=== PATIENT | female | born 1970 | race Caucasian/White ===

== ENCOUNTER → 2017-08-30 08:21 | Outpatient (CLI) | payer OTHER, SELFPAY ==
--- NOTE | 2017-08-30 08:24 | MM_ITS ---
MM Dig screening mamm BI w/CAD CAD Screening ORDERING PHYSICIAN : Spring Ortiz PATIENT AGE: 47 years GENDER: Female COMPARISON: Previous mammograms: August 2016, INDICATION: Uses progesterone lotion. No new complaints. Noncontributory family history TECHNIQUE: Standard CC and MLO images were obtained. R2 CAD reviewed. FINDINGS: Moderate density breast bilaterally with no dominant mass nor suspicious calcifications either breast . No architectural distortion. Prior mammogram helpful and supportive stable fibroglandular pattern with no significant new findingsCAD computer review highlights no new areas of concern either Bilateral follow-up in one year adequate RIGHT BREAST:No new areas of concern. Stable LEFT BREAST:No significant new findings. The mild nodularity seen on cc view is stable and dissipates on the MLO view. IMPRESSION: Stable mammogram no significant new findings. Bilateral follow-up one year recommended. BI-RADS Category: 1 Negative RECOMMENDED FOLLOW-UP: 1YR - 1 YEAR FOLLOW-UP (A letter has been sent to the patient regarding results of the study.)
== END ==
PROVIDERS: PCP Nurse Practitioner Family; Visit Provider Nurse Practitioner
DX: Z12.31 Encounter for screening mammogram for malignant neoplasm of breast (principal)
CPT/HCPCS: 77067

== ENCOUNTER → 2017-11-26 10:53 | Outpatient (CLI) | payer OTHER, SELFPAY ==
--- NOTE | 2017-11-26 10:56 | US_ITS ---
US soft tissue head and neck CLINICAL INDICATION: ITS.REASON: SWELLING OF LYMPH NODES ORDERING PHYSICIAN: Spring Ortiz PATIENT AGE: 47 years Comparison: None FINDINGS: Ultrasound is performed of the supraclavicular region bilaterally in the area of palpable concern. There is heterogeneous echogenicity in both of these areas measuring up to 4.6 x 3 cm on the right and 4 x 1 cm on the left . This has the appearance of fatty tissue/lipomas. There is a 6 small node in the left supraclavicular region at 1 cm. Parotid and submandibular glands have an unremarkable appearance with no other significant anomalies evident. IMPRESSION: Heterogeneous areas of increased echogenicity in the supraclavicular regions likely correspond to fatty tissue/lipomas
== END ==
PROVIDERS: PCP Nurse Practitioner Family; Visit Provider Nurse Practitioner
DX: R59.9 Enlarged lymph nodes, unspecified (principal)
CPT/HCPCS: 76536

== ENCOUNTER → 2017-12-03 14:54 | Outpatient (CLI) | payer OTHER, SELFPAY ==
--- NOTE | 2017-12-03 14:57 | CT_ITS ---
CT soft tissue neck wo con INDICATION: ITS.REASON: SWOLLEN LYMPH NODES, DYSPHAGIA ORDERING PHYSICIAN: Spring Ortiz PATIENT AGE: 47 years COMPARISON: None TECHNIQUE: Axial images are obtained without contrast. Sagittal and coronal reformatted images are reviewed as well. All CT scans at the facility use one or more dose reduction, viz: automated exposure control, ma/kV adjustment per patient size (including targeted exams where dose is matched to indication, i.e. head), or iterative reconstruction technique. FINDINGS: Evaluation limited without IV contrast. Artifact is present patient's dental work. The nasopharynx has an unremarkable appearance. No sinus air-fluid level of the visualized sinuses. Parotid glands and submandibular glands are unremarkable. A BB is placed along the in the anterior aspect of the neck centrally slightly toward the left and in the supraclavicular region bilaterally toward the base of the neck. No nodules are evident beneath these BBs. No adenopathy. No evidence of abscess. The lung apices are clear. The thyroid gland has an unremarkable appearance. There are few scattered small cervical lymph nodes in the deep cervical chains and in the submandibular region. There is degenerative disc disease at C5-C6 with posterior endplate osteophytes with a central and right paracentral disc osteophyte complex with borderline narrowing of the canal. IMPRESSION: 1. Essentially negative unenhanced CT scan of the neck. No mass adenopathy or abscess. 2. Degenerative disc disease with central and right paracentral disc osteophyte complex at C5-C6
== END ==
PROVIDERS: PCP Nurse Practitioner; Visit Provider Nurse Practitioner
DX: R13.10 Dysphagia, unspecified (principal); R59.9 Enlarged lymph nodes, unspecified
CPT/HCPCS: 70490

== ENCOUNTER → 2017-12-04 12:20 | Outpatient (CLI) | payer OTHER, SELFPAY ==
--- NOTE | 2017-12-04 12:26 | XR_ITS ---
XR chest 2V HISTORY: ITS.REASON: COUGH ORDERING PHYSICIAN: Azam Poe MD PATIENT AGE: 47 years Technique: PA and lateral chest COMPARISON: No prior chest film FINDINGS: No acute cardiopulmonary findings. No focal pneumonia Small 3.5 mm partially calcified granuloma at the right midlung. Anterior second interspace. On the left near scarring density with posterior small partially calcified granuloma likely yields a minimal density density projected over the left fourth rib, just lateral to the left heart border. A follow-up chest film in 4 months could confirm stability of these most benign-appearing features heart upper normal in size.. pulmonary vascularity normal The lungs are clear without infiltrates, suspicious nodules, or pleural effusions. No acute bony abnormalities. IMPRESSION: . Nothing definitely acute. Minimal Old granulomas disease I believe account for minor densities bilaterally . Follow-up chest film 4 months could further confirm stability, since are no prior studies for comparison.
== END ==
PROVIDERS: PCP Family Medicine; Referring Provider Family Medicine; Visit Provider Family Medicine
DX: R05 Cough (principal)
CPT/HCPCS: 71046

== ENCOUNTER → 2017-12-07 16:02 | Outpatient (CLI) | payer OTHER, SELFPAY ==
--- NOTE | 2017-12-07 16:08 | CT_ITS ---
CT chest w con HISTORY: ITS.REASON: POSTOBSTRUCTIVE PNEUMONIA, NIGHT SWEATS, SHORTNESS OF BREATH ORDERING PHYSICIAN: Azam Poe MD PATIENT AGE: 47 years COMPARISON: None TECHNIQUE: Axial images obtained following the administration of 75 mL of Isovue 370 . Sagittal, and coronal reformatted images are also generated and reviewed. All CT scans at the facility use one or more dose reduction, viz: automated exposure control, ma/kV adjustment per patient size (including targeted exams where dose is matched to indication, i.e. head), or iterative reconstruction technique. FINDINGS: No mediastinal or hilar mass or adenopathy. Normal heart size. Minimal pericardial thickening anteriorly nonspecific. Patchy groundglass density is present in the right upper lobe centrally and laterally and medially along the minor fissure consistent with patchy areas of pneumonitis. A subpleural nodular opacity is present in the right lower lobe posteriorly at 4 mm. There is also some patchy groundglass density in the left upper lobe. Calcified granuloma is present in the left lower lobe. No suspicious pulmonary nodules. No central obstructing lesions. No acute bony anomalies. Upper abdominal images show fatty liver. IMPRESSION: 1. Patchy groundglass density in both upper lobes suggesting mild tendinitis. No central obstructing lesion. 2. Old granulomatous disease 3. 4 mm subpleural nodule right lower lobe posteriorly nonspecific. No follow-up needed for low-risk patients. Follow-up in 12 months for high risk patients suggested
== END ==
PROVIDERS: PCP Family Medicine; Visit Provider Family Medicine
DX: J18.9 Pneumonia, unspecified organism (principal); R61 Generalized hyperhidrosis; R06.02 Shortness of breath
CPT/HCPCS: 71260; Q9967

== ENCOUNTER → 2018-01-19 15:08 | Outpatient (CLI) | payer OTHER, SELFPAY | PROVIDERS: Visit Provider Physician Assistant | DX: R06.00 Dyspnea, unspecified (principal); R60.9 Edema, unspecified | CPT/HCPCS: 93005 ==

== ENCOUNTER → 2018-01-24 10:45 | Outpatient (CLI) | payer OTHER, SELFPAY ==
--- NOTE | 2018-01-24 10:47 | CA_ITS ---
PROCEDURE: 2-D M-mode and color Doppler study INDICATIONS FOR THE TEST: Chest pain COPD Heart MurmurX Tobacco SmokingX Palpitations Fatigue Syncope Edema Hypertension Diabetes Mellitus Rheumatic Fever SOBXDOE Obesity Hyperlipidemia Family History HD Additional History PATIENT INFORMATION HEIGHT: 60 WEIGHT:201 GENDER: Female B/P:140/88 2-D/M-MODE INTERPRETATION: 2-D MEASUREMENTS OBSERVED VALUES IN CMS Right Ventricular Dimension (RVDd) 3.1 Interventricular Septum (Thickness)(IVsd) .6 Left Ventricular Internal Dimensions(LVIDd) 4.9 Left Ventricular Posterior Wall (Thickness)(LVPWd) .9 Aortic Root 2.7 Aortic Cusp Separation 1.8 Left Atrial Dimensions (LAD) 2.6 2D 1. Left atrium is normal size, left ventricle is normal size, there is no concentric left ventricular hypertrophy, visually estimated ejection fraction of 55% with no regional wall motion abnormality. 2. The right atrium and right ventricle are normal size and contractility. 3. The aortic valve is minimally thickened and fibrosed. 4. The mitral and tricuspid valve are grossly normal. 5. The pulmonic valve is poorly visualized. 6. No significant pericardial effusion noted. DOPPLER INTERROGATION: Doppler interrogation of the aortic, mitral and tricuspid valvular presence of mild mitral and tricuspid regurgitation, tricuspid regurgitation jet velocity insufficient for calculation of the right ventricular systolic pressure, diastolic parameters are within normal range. CONCLUSION: 1. Normal left ventricular size, preserved left ventricular systolic function, visually estimated ejection of 55 with no regional wall motion abnormality, diastolic parameters are within normal range. 2. Mild mitral and tricuspid regurgitation. 3. No significant pericardial effusion noted
== END ==
PROVIDERS: PCP Nurse Practitioner; Visit Provider Physician Assistant
DX: R01.1 Cardiac murmur, unspecified (principal); R06.00 Dyspnea, unspecified
CPT/HCPCS: 93306

== ENCOUNTER → 2018-09-05 08:25 | Outpatient (CLI) | payer OTHER, SELFPAY ==
--- NOTE | 2018-09-05 08:28 | MM_ITS ---
MM Dig screening mamm BI w/CAD CAD Screening COMPARISON: Digital mammograms with CAD 08/30/2017 and 08/26/2016 INDICATION: There is no personal or family history of breast cancer TECHNIQUE: Standard CC and MLO images were obtained. R2 CAD reviewed. FINDINGS: The breasts are composed primarily of fat with minimal scattered fibro glandular densities in each breast. There is no suspicious lesion in either breast and there are no suspicious microcalcifications. IMPRESSION: Stable exam with fibrofatty parenchyma BI-RADS Category: 1 Negative RECOMMENDED FOLLOW-UP: 1YR - 1 YEAR FOLLOW-UP (A letter has been sent to the patient regarding results of the study.)
== END ==
PROVIDERS: PCP Family Medicine; Visit Provider Nurse Practitioner
DX: Z12.31 Encounter for screening mammogram for malignant neoplasm of breast (principal)
CPT/HCPCS: 77067

== ENCOUNTER → 2018-12-16 11:24 | Outpatient (CLI) | payer OTHER, SELFPAY ==
--- NOTE | 2018-12-16 11:29 | XR_ITS ---
PROCEDURE: XR HIP RT 2-3V W/PELVIS CLINICAL INDICATION: INJURY OF RT HIP,RT HIP PAIN COMPARISON: [id number] HIP RT 2-3V W/PELVIS IF PERFOR from 08/26/2016 FINDINGS: No fracture or dislocation is evident. No significant degenerative change. No lytic or blastic change. Unremarkable soft tissues. IMPRESSION: No acute findings. Dictated by: Elvis Acevedo MD 12/16/2018 16:06 Signed by: <Electronically signed by Elvis Acevedo MD in [place]> 12/16/2018 16:06
== END ==
PROVIDERS: PCP Nurse Practitioner Family; Visit Provider Nurse Practitioner Family
DX: S79.911A Unspecified injury of right hip, initial encounter (principal); M25.551 Pain in right hip
CPT/HCPCS: 73502

== ENCOUNTER → 2019-02-01 10:57 | Outpatient (CLI) | payer OTHER, SELFPAY | PROVIDERS: PCP Family Medicine; Visit Provider Family Medicine | DX: G47.33 Obstructive sleep apnea (adult) (pediatric) (principal); I10 Essential (primary) hypertension; R40.0 Somnolence; R51 Headache; R06.83 Snoring | CPT/HCPCS: 95806 ==

== ENCOUNTER → 2019-02-07 08:02 | Outpatient (CLI) | payer OTHER, SELFPAY | PROVIDERS: PCP Family Medicine; Visit Provider Family Medicine | DX: I49.9 Cardiac arrhythmia, unspecified (principal) | CPT/HCPCS: 93225; 93226 ==

== ENCOUNTER → 2019-09-12 07:55 | Outpatient (CLI) | payer OTHER, SELFPAY ==
--- NOTE | 2019-09-12 07:59 | MM_ITS ---
PROCEDURE: MM DIG SCREENING MAMM BI W/CAD Digital Breast Tomosynthesis Included CLINICAL INDICATION: SCREENING There is no personal or family history of breast cancer. COMPARISON: [facility] DIG MAMM-SCREEN [place] W/CAD from 08/26/2016 [facility] MM Dig screening mamm BI w/CAD from 08/30/2017 DIG MAMM-SCREEN [place] from 09/05/2018 TECHNIQUE: Standard CC and MLO images and 3D Tomosynthesis was obtained. R2 CAD reviewed. FINDINGS: The breasts are composed primarily of fat with scattered fibroglandular densities in the central portions of both breasts. There is an asymmetric density left breast just deep to and slightly above the nipple at the 12 o'clock position. It is best seen with tomogram images and recommend the patient return for spot compression views in the MLO and CC projection and ultrasound for additional evaluation. IMPRESSION: Fibrofatty parenchyma with possible developing asymmetric density left breast BI-RAD Category: 0 Need Additional Imaging Evaluation FOLLOW-UP: IMM Immediate Follow-up Recommended (A letter has been sent to the patient regarding results of the study.) Dictated by: Dr. Kedar Willis MD 09/12/2019 09:[address] Kedar Willis MD in [place] 09/12/2019 09:45
== END ==
PROVIDERS: PCP Family Medicine; Visit Provider Family Medicine
DX: Z12.31 Encounter for screening mammogram for malignant neoplasm of breast (principal)
CPT/HCPCS: 77063; 77067

== ENCOUNTER → 2019-09-20 12:56 | Outpatient (CLI) | payer OTHER, SELFPAY ==
--- NOTE | 2019-09-20 12:59 | MM_ITS ---
PROCEDURE: MM DIG MAMM DX UNILAT LT CAD Left breast ultrasound complete with axilla CLINICAL INDICATION: ABN MAMM Follow-up abnormal mammogram, breast nodule COMPARISON: [facility] DIG MAMM-SCREEN [place] W/CAD from 08/26/2016 [facility] MM Dig screening mamm BI w/CAD from 08/30/2017 DIG MAMM-SCREEN [place] from 09/05/2018 MM DIG SCREENING MAMM BI W/CAD from 09/12/2019 US BREAST LT COMPLETE from 09/20/2019 TECHNIQUE: Spot views along with left breast ultrasound FINDINGS: Average fibroglandular tissue. The area of asymmetric density is once again noted in the upper aspect of the left breast centrally which appears less well circumscribed on the spot views and the mL view.. This however maintains a nodular configuration on the CC view measuring approximately 12 by 7 mm. This is probably not significantly changed from 09/05/2018 but may be slightly more prominent from 08 30 17. Left breast ultrasound: In the 12 o'clock position there is a 11 by 6 x 4 mm complicated cyst which may actually represent a cluster of small cyst. This has a benign appearance and may correspond to the mammographic abnormality. At 2 o'clock there is a 6 mm hypoechoic nodule possibly due to a small cyst. 7 mm cyst suspected at 4 o'clock. No suspicious nodules are evident. IMPRESSION: Probably benign findings. Suggest 6 month sonographic and mammographic follow-up BI-RAD Category: 3 Probably Benign Finding Short Term Follow-up FOLLOW-UP: 6M 6Month Follow-up (A letter has been sent to the patient regarding results of the study.) Dictated by: Elvis Acevedo MD 09/22/2019 14:08 Electronically signed by Elvis Acevedo MD in [place] 09/22/2019 14:08
== END ==
LOC: RAD 12:56
PROVIDERS: PCP Family Medicine; Visit Provider Family Medicine
DX: R92.8 Other abnormal and inconclusive findings on diagnostic imaging of breast (principal)
CPT/HCPCS: 76641; 77061; 77065; G0279

== ENCOUNTER → 2019-10-13 07:57 | Outpatient (CLI) | payer OTHER, SELFPAY ==
[2019-10-13 11:42] LABS: Coronavirus 19 IgG Antibody Negative (Negative); Coronavirus 19 IgM Antibody Negative (Negative)
== END ==
PROVIDERS: Visit Provider Obstetrics & Gynecology
DX: Z01.818 Encounter for other preprocedural examination (principal)
CPT/HCPCS: 36415; 86328

== ENCOUNTER 2019-10-16 15:22 | Observation (INO) | payer OTHER, SELFPAY ==
--- NOTE | 2019-10-12 11:24 | SUR.PREOP ---
10/12/2019 @ 1100--PHONE CALL MADE TO PATIENT. PATIENT UNDERSTANDS THAT LAB WORK AND COVID TESTING NEEDS TO BE COMPLETED @ 0800 ON 10/13/2019. PATIENT UNDERSTANDS IF LAB WORK AND COVID-19 TESTS ARE NOT COMPLETED BY 12PM ON THAT DATE, THE SURGERY SCHEDULED WILL BE CANCELLED AND RESCHEDULED FOR ANOTHER TIME.
[2019-10-12 13:14] VITALS: BMI 38.0
[2019-10-16] VITALS (26 sets, daily range): BP systolic 88–122; BP diastolic 54–75; PULSE 53–90; RESP 16–18; TEMP 36.2–43; O2SAT 92–100
[2019-10-16 12:24] LABS: POC Glucose,Bedside 110 (70-110)
[2019-10-16 14:19] LABS: Microscopic,Cath URINE MICROSCOPIC (MICROSCOPIC)
[2019-10-16 14:21] LABS: Appearance,Urine/Cath CLEAR (Clear); Bilirubin,Cath Negative (Negative); Blood, Urine/Cath Negative (Negative); Color,Urine/Cath YELLOW (Yellow); Glucose,Urine/Cath (UA) Negative (Negative); Ketones,Urine/Cath 1+ (Negative); Leukocyte Esterase,Cath Negative (Negative); Nitrate,Cath Negative (Negative); Protein,Urine/Cath Negative (Negative); Specific Gravity, Urine/Cath >= 1.030 (1.005-1.030); Urobilinogen,Cath 0.2 EU/dl (0.2)
--- NOTE | 2019-10-16 14:27 | P.OP_ITS ---
Date of procedure: 10/16/19 Pre-op Diagnosis:: Rectocele Post-op Diagnosis:: Rectocele Procedure performed:: Posterior repair Surgeon:: Mariposa Alva MD E BUSINESS PROJECT MANAGER:: Azam Pendleton Anesthesia: GETA Estimated blood loss (mL): 50 Operative findings:: Grade 2 rectocele No uterine or bladder prolapse Operative note:: The patient was taken to the operating room and general anesthesia was administered without difficulty. She was prepped and draped in lithotomy position. Lidocaine 1% with epi (15cc) was injected in the posterior vaginal musoca to aid with dissection. Allis clamps were applied at the margin of the hymen and the upper aspect of the rectocele. A transverse incision was made at the posterior fourchette and metzenbaum scissors were used to dissect the posterior vaginal mucosa off the perirectal fascia. A vertical incision was made with the scissors to the apex of the rectocele and the lateral aspects of the vaginal mucosa were grasped with allis clamps. The perirectal fascia was further dissected bluntly off the vaginal mucosa. The excessive vaginal mucosa was trimmed and the perirectal fascia was reapproximated with interrupted 0- vicryl sutures in the midline. The vaginal mucosa was then reapproximated with 2-0 vicryl interrupted sutures. The perineum was reapproximated in layers. The patient tolerated the procedure well; sponge/lap/needle and instrument counts were correct ?2. She was taken to the recovery room awake in stable condition. Estimated blood loss: 50 cc. Condition: stable Disposition: PACU Specimens:: None Complications:: None
--- NOTE | 2019-10-16 14:32 | HMH.ANESCL ---
[facility] Anesthesia Checklist - Patient Identification Patient Identification: Arm Band, Verbal (Name & ) - Structural Data Admitted From: Home Planned Operative Procedure/s: rectocele Consent for Planned Operative Procedure(s) Verified: Yes Verified Documents: History and Physical - NPO Status Verified Time NPO: 00:00 - Chart Verification Results Verified: CBC, BMP - Additional verifications Patient : No Anesthesia Reactions: Yes (nausea) Hx Blood Transfusions: Yes Blood Transfusion Reaction: No Cephalosporin Allergy: No Previous Colonoscopy: No - Cardiovascular Assessment Heart Sounds: S1 & S2 Pulse Strength: Baseline Pulse Rhythm: Regular Peripheral Edema: No - Airway Assessment C-Spine Mobility Assessed: Yes TMJ Mobility Assessed: Yes Dentition: Good Dentition - Neurological Assessment Level of Consciousness: Awake, Alert, Appropriate Hx Seizures: No Numbness or tingling in extremities: No - Anesthesia Plan Anesthesia Risk discussed: Yes Anesthesia Plan: Verified ASA Class: II Anesthesia Type: General [facility] History I have reviewed the patient's past medical history: Yes Medical History: Reports:: Diabetes Mellitus Type 2 Denies:: Cancer, Diabetes Mellitus Type 1, Internal Pacemaker, MRSA, Seizures *Have you ever received a pneumonia vaccine?: No *Have you received a flu vaccine this season?: Yes Other Medical History: Denies: Blood Transfusion Reaction Anesthesia experience/problems:: ponv Other Surgeries: Yes: (1989, ), Dilation and Curettage, Tubal Ligation. No: Pacemaker Amputation: No Fractures: Yes (right elbow) - *Social History Smoking Status: Current every day smoker # Packs/Day (cigarettes): 1 Alcohol Intake: never Substance Use Type: other *Occupational Status:: employed Housing: house *Travel in the last 8 weeks: None Family Hx:: Diabetes (dad and patient), Hypertension, Asthma
--- NOTE | 2019-10-16 14:33 | HMH.ANESI ---
[facility] Anesthesia Record Part I Intake, IV Amount: 300 Estimated blood loss (mL): 50 Urine output (mL): 50 Blood Products used (#): none Blood Pressure: 103/66 SaO2: 93 Pulse Rate: 90 Respiratory Rate: 18 Temperature: 97.5 F Patient is:: Awake, Stable Stable to PACU at:: 14:20
[2019-10-16 14:42] LABS: POC Glucose,Bedside 134 (70-110)
[2019-10-16 14:42] LABS: RBC,Urine/Cath Occasional # /hpf (0-3); WBC,Urine/Cath Occasional #/hpf (0-3)
--- NOTE | 2019-10-16 15:01 | SUR.PHASEI ---
FSBS-134 in PACU
--- NOTE | 2019-10-16 15:59 | HMH.PHAVTE ---
[facility] Pharmacy VTE Monitoring - Patient Demographics Admission date: 10/16/19 Report Date: 10/16/19 Time: 15:59 Allergies/Adverse Reactions: Patient Allergies naproxen Allergy (Mild, Verified 10/16/19 11:36) Rash venlafaxine [From Effexor] Allergy (Mild, Verified 10/16/19 11:36) nausea and vomiting Height: 1.52 m Weight: 88.451 kg - Prophylaxis VTE Prophylaxis Ordered?: Yes Types of VTE Prophylaxis: IPCS Thigh High Location of Applied Device: Bilateral Lower Extremeties - VTE Diagnosis Confirmed Treatment or plan recommended: Continue Current Treatment
--- NOTE | 2019-10-16 16:52 | HMH.ANESII ---
[facility] Anesthesia Record Part II Discharge Time: 15:32 Destination: Medical Surgical Department PACU nurse assessment reviewed?: Yes Patient Condition:: Good Anesthesia Complications:: None Swallowing reflex intact?: Yes Cyanosis?: No Blood Pressure: 91/57 Pulse Rate: 72 Temperature: 97.2 F Mental Status: Alert & Oriented Pain level:: 1 Nausea and/or vomitting:: None Intake, IV Amount: 10
--- NOTE | 2019-10-16 19:10 | PC.NURSE ---
All charting and pt care performed by PANKAJ Saeed. done under my supervision.
--- NOTE | 2019-10-16 19:13 | PC.NURSE ---
Report given to PANKAJ Rushing
--- NOTE | 2019-10-16 19:15 | PC.NURSE ---
REPORT RECIEVED FROM LOLYRN
--- NOTE | 2019-10-16 19:57 | PC.NURSE ---
NICOTINE PATCH 21MG PLACED ON RIGHT UPPER ARM
--- NOTE | 2019-10-16 21:15 | PC.NURSE ---
Addendum entered by Chlea Lou RN 10/16/19 21:58: INCENTIVE SPIROMETER PROVIDED AND PT WAS ABLE TO ACHIEVE 1OOOML.ENCOURAGED USE EVERY HOUR WHILE AWAKE Original Note: UPON ENTERING ROOM PT WAS DOZING.YL HUNG PT HAD BEEN NAUSEATED AND REPORTED SHE DID THROW UP,SO GOING TO GIVE PT SOME JELLO SO SHE WILL HAVE SOMETHING ON HER STOMACH BEFORE SHE TAKES HER METFORMIN AND SINGULAR.PT REPORTS SHE DOES NEED HER SINGULAR TONIGHT.FSBS WAS 208.PT REPORTS A LITTLE MORE BURNING VAG.ICE PACK PROVIDED FOR VAG.AREA.WILL CONTINUE TO MONITOR
[2019-10-16 21:30] LABS: POC Glucose,Bedside 208 (70-110)
--- NOTE | 2019-10-17 02:20 | PC.NURSE ---
PT WAS MEDICATED WITH MORPHINE 2MG IVP FOR PAIN OF 8 ON SCALE OF 0-10.ROSA CARE AND ABBY-CARE DONE TO SEE IF THIS WOULD HELP THE BURNING.650ML YELLOW URINE EMPTIED FROM ROSA,WILL CONTINUE TO MONITOR
--- NOTE | 2019-10-17 02:57 | PC.NURSE ---
PT RESTING QUITELY WITH EYES CLOSED,RESP.EVEN AND UNLABORED.
[2019-10-17 03:55] VITALS: BP 100/65; PULSE 61; RESP 16; TEMP 36.8; O2SAT 96
--- NOTE | 2019-10-17 03:55 | PC.NURSE ---
ANDREA PROVIDED PRIOR TO TAKING THE OXYCODONE ON EMPTY STOMACH
--- NOTE | 2019-10-17 04:30 | PC.NURSE ---
PT MEDICATED WITH OXYCODONE 10MG PO THIS MORNING FOR A BURNING AND THROBBING PAIN.ROSA CATH REMOVED AND PT REPORTS SOME OF THE PRESSURE IS GONE.VAG PACKING REMAINS IN PLACE,A FAINT PINK TINGE NOTED ON KOTEX PAD WITH CATH AND ABBY CARE.LUNGS CLEAR,RESP.EVEN AND UNLABORED.NORMAL BOWEL SOUNDS X4 QUADS,PT REPORTS PASSING FLATUS.PT AFEBRILE.INSTRUCTED PT TO RING WHEN SHE WANTED TO GET UP TO BATHROOM,PT V/U.
--- NOTE | 2019-10-17 04:45 | PC.NURSE ---
PT REPORTS THE PAIN IS BETTER,A 5-6 ON PAIN SCALE.PT REPORTS STILL HAS THE VAG.BURNING,EXPLAINED THAT THE BURNING WILL PROBABLY REMAIN UNTIL REMOVES THE VAG.PACKING,PT V/U
--- NOTE | 2019-10-17 06:46 | PC.NURSE ---
FSBS RESULTS -101.LAB AT BEDSIDE OBTAINING H AND H
[2019-10-17 06:50] LABS: POC Glucose,Bedside 101 (70-110)
[2019-10-17 06:53] LABS: Hematocrit 33.8 % (37.0-47.0); Hemoglobin 11.3 g/dL (12.2-16.2)
--- NOTE | 2019-10-17 07:06 | PC.NURSE ---
REPORT GIVEN TO AMBREENRN
[2019-10-17 08:10] VITALS: BP 110/70; PULSE 74; RESP 16; TEMP 36.6; O2SAT 98
--- NOTE | 2019-10-17 10:06 | PC.NURSE ---
1000 vaginal packing removed per MD verbal order with small amount of brown vaginal blood noted, pt tolerated removal well. 1005 pt ambulated to BR to void with stand by assistance, tolerated activity well and was able to void without any difficulty. Mesh underwear and peripad provided to pt. Pt ambulating in BR, brushing her teeth and getting dressed for discharge, encouraged to call out for any needs.
--- NOTE | 2019-10-17 10:18 | HMH.DCSUM ---
General - General Admission date:: 10/16/19 Discharge date: 10/17/19 Hospital Course Hospital Course: Postop day #1 Posterior repair Tolerating diet, ambulating and voiding Packing removed with minimal drainage Ready for discharge Rhogam Administration: Not Indicated Objective Vital signs: Temp Pulse Resp BP Pulse Ox 97.8 F 74 16 110/70 98 10/17/19 08:10 10/17/19 08:10 10/17/19 08:10 10/17/19 08:10 10/17/19 08:10 Narrative: CONSTITUTIONAL: no acute distress HEENT: mucous membranes moist PULMONARY: breathing unlabored without audible wheezes CV: no tachycardia or visible JVD; normal LE peripheral pulses ABD: soft, ND; appropriately tender but no rebound/guarding SKIN: no rash EXT: no edema LEs NEURO: alert/oriented, no altered mental status PSYCH: appropriate mood and demeanor without anxiety/depression Results Labs on day of discharge: Labs from last 24 hours 10/17/19 10/17/19 10/16/19 06:45 06:41 21:02 Hgb 11.3 L Hct 33.8 L POC Glucose 101 208 H Urine Color Urine Appearance Urine pH Ur Specific [place] Urine Protein Urine Glucose (UA) Urine Ketones Urine Blood Urine Nitrate Urine Bilirubin Urine Urobilinogen Ur Leukocyte Esterase Urine RBC Urine WBC Ur Squamous Epith Cells 10/16/19 10/16/19 10/16/19 14:34 13:10 11:52 Hgb Hct POC Glucose 134 H 110 Urine Color Yellow Urine Appearance Clear Urine pH 6.0 Ur Specific [place] >= 1.030 Urine Protein Negative Urine Glucose (UA) Negative Urine Ketones 1+ Urine Blood Negative Urine Nitrate Negative Urine Bilirubin Negative Urine Urobilinogen 0.2 Ur Leukocyte Esterase Negative Urine RBC Occasional Urine WBC Occasional Ur Squamous Epith Cells 3-5 DS: Diagnosis - Discharge Diagnosis (1) Rectocele Status: Acute Discharge Plan - Patient Discharge Instructions ACTIVITY: Continue current activity DIET: regular diet Additional Instructions: No strenuous activity, no driving while taking prescription narcotics, nothing in the vagina until cleared by your doctor. Patient Instructions: DI for Cystocele and Rectocele Repair, Preventing the Spread of Coronavirus Discharge Instructions - Follow up Plan Follow up with: Mariposa Alva MD [Staff Physician] - 11/07/19 9:15 am Disposition: Home, Self-Group Home Medications: Home Medications Medication Instructions Recorded Confirmed Type celecoxib 200 mg capsule 200 mg PO DAILY 09/28/19 10/12/19 History gabapentin 100 mg capsule 100 mg PO TID 09/28/19 10/17/19 History metformin 500 mg tablet 500 mg PO BID 09/28/19 10/12/19 History montelukast 10 mg tablet 10 mg PO DAILY 09/28/19 10/12/19 History Telmisartan 40 mg PO DAILY 10/16/19 10/16/19 History Oxycodone HCl [OxyIR 5mg tablet] 5 mg PO Q4HP PRN #30 tablet 10/17/19 Rx Prescriptions/Medication Reconciliation: New Acetaminophen [Acetaminophen 325mg tab] 650 mg PO Q4HP PRN tablet PRN Reason: Mild Pain Oxycodone HCl [OxyIR 5mg tablet] 5 mg PO Q4HP PRN #30 tablet PRN Reason: Moderate To Severe Pain Sennosides/Docusate Sodium [Senokot-S Tablet] 1 tab PO BIDP PRN tablet PRN Reason: Constipation Continued metformin 500 mg tablet 500 mg PO BID gabapentin 100 mg capsule 100 mg PO TID montelukast 10 mg tablet 10 mg PO DAILY celecoxib 200 mg capsule 200 mg PO DAILY Telmisartan 40 mg PO DAILY - Problem Reconciliation Problems Reviewed?: Yes
--- NOTE | 2019-10-17 10:42 | PC.NURSE ---
1040- Discharge education provided to pt, questions encouraged and answered. Pt aware of doctors appointment on 11/07/2019 at 0915. At this time, waiting for clinic pharmacy to bring prescription oxycodone to pt and also waiting for pts ride to get here.
== END 2019-10-17 11:10 | disposition home or self-care (01) ==
LOC: OB 10-17 07:28
PROVIDERS: Admitting Provider Obstetrics & Gynecology; PCP Family Medicine; Visit Provider Obstetrics & Gynecology
PROC: 0JQC0ZZ Repair Pelvic Region Subcutaneous Tissue and Fascia, Open Approach (ICD-10-PCS; CPT 45560; principal; 2019-10-16 10:15)
DX: N81.6 Rectocele (principal); E11.9 Type 2 diabetes mellitus without complications; Z79.84 Long term (current) use of oral hypoglycemic drugs; Z72.0 Tobacco use
CPT/HCPCS: 57250; 36415; 81001; 82962; 85014; 85018; 94761; 96374; G0378; J2405

== ENCOUNTER → 2020-02-07 15:07 | Outpatient (CLI) | payer OTHER, SELFPAY | PROVIDERS: PCP Family Medicine; Visit Provider Family Medicine | DX: Z03.818 Encounter for observation for suspected exposure to other biological agents ruled out (principal) | CPT/HCPCS: U0003 ==

== ENCOUNTER → 2020-03-06 14:45 | Outpatient (CLI) | payer OTHER, SELFPAY ==
--- NOTE | 2020-03-06 14:47 | MM_ITS ---
PROCEDURE: MM DIG MAMM DX UNILAT LT CAD Digital Breast Tomosynthesis Included CLINICAL INDICATION: ABN MAMM Six-month follow-up abnormal mammogram COMPARISON: MG DIG MAMM-SCREEN [place] from 09/05/2018 MG MM DIG SCREENING MAMM BI W/CAD from 09/12/2019 MG MM DIG MAMM DX UNILAT LT CAD from 09/20/2019 US US BREAST LT COMPLETE from 09/20/2019 US US BREAST LT COMPLETE from 03/06/2020 TECHNIQUE: Standard CC and MLO images and 3D Tomosynthesis was obtained. R2 CAD reviewed. FINDINGS: There is average fibroglandular tissue. Faint nodularity once again noted in the superior aspect of breast which appears to compress out view.. The area of nodularity appears somewhat less apparent CC view but is still present. Rolled views demonstrate some central nodularity as well. Left breast ultrasound: 8 mm complicated cyst present at 12 o'clock which may account mammographic abnormality. This previously measured 11 mm. There is a small complicated cyst at 2 o'clock at 6 mm unchanged. No malignant appearing mass apparent. IMPRESSION: Probably benign findings. Recommend continued six-month follow-up bilaterally to confirm 1 year stability. BI-RAD Category: 3 Probably Benign Finding Short Term Follow-up FOLLOW-UP: 6M 6Month Follow-up (A letter has been sent to the patient regarding results of the study.) Dictated by: Elvis Acevedo MD 03/08/2020 12:03 Elvis Acevedo MD in [place] 03/08/2020 12:03
== END ==
PROVIDERS: PCP Family Medicine; Visit Provider Family Medicine
DX: R92.8 Other abnormal and inconclusive findings on diagnostic imaging of breast (principal); Z09 Encounter for follow-up examination after completed treatment for conditions other than malignant neoplasm
CPT/HCPCS: 76641; 77061; 77065; G0279

== ENCOUNTER → 2020-03-06 15:27 | Outpatient (CLI) | payer OTHER, SELFPAY ==
[2020-03-08 10:54] LABS: Covid-19 Nasal PCR Sendout Lex Not Detected
== END ==
PROVIDERS: PCP Family Medicine; Visit Provider Family Medicine
DX: Z03.818 Encounter for observation for suspected exposure to other biological agents ruled out (principal)
CPT/HCPCS: U0004

== ENCOUNTER → 2020-05-06 09:09 | Outpatient (CLI) | payer OTHER, SELFPAY | PROVIDERS: PCP Family Medicine; Visit Provider Family Medicine | DX: Z20.822 Contact with and (suspected) exposure to COVID-19 (principal) | CPT/HCPCS: U0003 ==

== ENCOUNTER 2020-08-01 10:20 | Observation (INO) | payer OTHER, SELFPAY ==
[2020-08-01] VITALS (11 sets, daily range): BP systolic 95–170; BP diastolic 55–100; PULSE 54–87; RESP 16–22; TEMP 36.4–36.8; O2SAT 83–100; BMI 35.2; BMI 35.6
--- NOTE | 2020-08-01 10:57 | CT_ITS ---
PROCEDURE: CT ABDOMEN PELVIS WO CON CLINICAL INDICATION: kidney stone protocol Right lower quadrant pain COMPARISON: No exams were available for comparison TECHNIQUE: Axial images obtained with sagittal and coronal reformats. All CT scans at the facility use one or more dose reduction, viz: automated exposure control, ma/kV adjustment per patient size (including targeted exams where dose is matched to indication, i.e. head), or iterative reconstruction technique. FINDINGS: LOWER THORAX: Small hiatal hernia ABDOMEN & PELVIS: The liver, spleen, adrenal glands, and pancreas have an unremarkable unenhanced appearance. There is a 2 mm stone at the right ureterovesical junction with minimal dilatation of the right renal pelvis and calyces and right ureter with mild stranding of the perinephric and periureteral fat. No intestinal obstruction or free air. No evidence of appendicitis or diverticulitis. No pelvic mass or abnormal fluid collection. No acute bony findings. There is a tiny umbilical hernia containing fat. IMPRESSION: 2mm right ureterovesical junction stone with mild right-sided hydronephrosis and hydroureter. There is stranding of the proximal periureteral fat and [place] nephric fat which may be related to so shaded inflammatory or infectious changes. Dictated by: Elvis Acevedo MD 08/01/2020 11:58 Elvis Acevedo MD in [place] 08/01/2020 11:58
[2020-08-01 11:01] LABS: Chloride 106 mmol/L (98-107)
[2020-08-01 11:02] LABS: Basophils # 0.1 K/mm3 (0-0.2); Basophils % 0.8 % (0.1-2.0); Eosinophils # 0.1 K/mm3 (0.0-0.4); Eosinophils % 1.2 % (0.1-12.0); Hematocrit 40.5 % (37.0-47.0); Hemoglobin 13.2 g/dL (12.2-16.2); Lymphocytes # 4.5 K/mm3 (0.7-4.5); Lymphocytes % 43.7 % (10-50); Mean Corpuscular HGB Conc 32.6 g/dL (31.8-35.4); Mean Corpuscular Hemoglobin 28.9 pg (27.0-31.2); Mean Corpuscular Volume 88.5 fl (81-99); Mean Platelet Volume 10.3 fl (7.4-10.4); Monocytes # 0.5 K/mm3 (0.1-1.0); Monocytes % 4.9 % (1.7-9.3); Neutrophils # 5.1 K/mm3 (1.8-7.8); Neutrophils % 49.5 % (37.0-80.0); Platelet Count 189 K/mm3 (142-424); Potassium 4.1 mmoL/L (3.5-5.1); Red Blood Count 4.57 M/mm3 (4.20-5.40); Red Cell Distribution Width 13.6 % (11.5-17.5); Sodium 137 mmol/L (136-145); White Blood Count 10.3 K/mm3 (4.8-10.8)
[2020-08-01 11:04] LABS: Alanine Aminotransferase 24 U/L (12-78); Albumin Level 4.5 g/dl (3.5-5.0); Albumin/Globulin Ratio 1.6 (1.1-1.8); Alkaline Phosphatase 71 U/L (38-126); Anion Gap 13.1 mEq/L (5-15); Aspartate Amino Transferase 27 U/L (14-36); Bilirubin,Total 0.6 mg/dl (0.2-1.3); Blood Urea Nitrogen 13 mg/dl (7-17); Calcium 9.7 mg/dl (8.4-10.2); Carbon Dioxide 22 mmol/L (22.0-30.0); Creatinine Clearance Estimated 106 mL/min (50-200); Estimated Glomerular Filt Rate 75 ml/min (>60); GFR (African American) 91 ML/MIN (>60); Globulin 2.8 g/dL (1.3-3.2); Glucose 168 mg/dl (74-100); Total Protein,Serum 7.3 g/dl (6.3-8.2)
--- NOTE | 2020-08-01 11:25 | HMH.EDABDPAI ---
ED Disposition Clinical Impression: Calculus of kidney Disposition: Admitted as Observation Condition on Discharge: Good Instructions: DI for Acute Abdominal Pain Referrals: Azam Poe MD [Primary Care Provider] - - Critical Care Critical Care Time: No Attestation: On 08/01/20, the high probability of a clinically significant, sudden or life threatening deterioration of the following system(s) required my full and direct attention, intervention and personal management. The time I documented below is in addition to time spent performing reported procedures but includes the following listed in this critical care notation. Medical Decision Making - Medical Records Medical records reviewed: Yes: I reviewed the patient's medical records. - [place]apito Inquiry Pt receiving controlled substance: No Vital Signs: 08/01/20 10:30 08/01/20 11:57 08/01/20 12:00 Temperature 98.3 F Temperature Source Oral Pulse Rate 70 70 Pulse Rate [Right] 84 Respiratory Rate 22 20 Blood Pressure 160/93 H 170/95 H Blood Pressure [Right Arm] 166/100 H Blood Pressure Mean Blood Pressure Mean [Right Arm] 122 Blood Pressure Position 02 Sat by Pulse Oximetry 98 100 100 Oxygen Delivery Method 08/01/20 13:01 08/01/20 13:33 Temperature Temperature Source Pulse Rate 70 87 Pulse Rate [Right] Respiratory Rate Blood Pressure 167/87 H 141/75 H Blood Pressure [Right Arm] Blood Pressure Mean 113 Blood Pressure Mean [Right Arm] Blood Pressure Position Sitting 02 Sat by Pulse Oximetry 100 98 Oxygen Delivery Method Room Air Room Air - Lab Data Lab Results 08/01/20 10:45: WBC 10.3, RBC 4.57, Hgb 13.2, Hct 40.5, MCV 88.5, MCH 28.9, MCHC 32.6, RDW 13.6, Plt Count 189, MPV 10.3, Neut % (Auto) 49.5, Lymph % (Auto) 43.7, [place] % (Auto) 4.9, Eos % (Auto) 1.2, Baso % (Auto) 0.8, Neut # (Auto) 5.1, Lymph # (Auto) 4.5, [place] # (Auto) 0.5, Eos # (Auto) 0.1, Baso # (Auto) 0.1 08/01/20 10:45: Sodium 137, Potassium 4.1, Chloride 106, Carbon Dioxide 22, Anion Gap 13.1, BUN 13, Creatinine 0.80, Estimated Creat Clear 106, Estimated GFR 75, Est GFR ( Amer) 91, Glucose 168 H, Calcium 9.7, Total Bilirubin 0.6, AST 27, ALT 24, Alkaline Phosphatase 71, Total Protein 7.3, Albumin 4.5, Globulin 2.8, Albumin/Globulin Ratio 1.6 Result diagrams: 08/01/20 10:45 08/01/20 10:45 Orders (Tests/Meds): ED MEDICATIONS Discontinued Medications Generic Name Dose Route Start Last Admin Trade Name Freq PRN Reason Stop Dose Admin Hydromorphone HCl 1 mg 08/01/20 12:07 08/01/20 12:11 Hydromorphone 2mg/Ml Syringe IV 08/01/20 12:08 1 mg ONCE ONE Administration Hydromorphone HCl 1 mg 08/01/20 13:32 08/01/20 13:34 Hydromorphone 2mg/Ml Syringe IV 08/01/20 13:33 1 mg ONCE ONE Administration Sodium Chloride 1,000 mls @ 999 mls/hr 08/01/20 11:30 08/01/20 11:51 Sod Chlor 0.9% 1000ml Bag IV 08/01/20 12:30 999 mls/hr .Q1H1M BUD Administration Ketorolac Tromethamine 30 mg 08/01/20 11:48 08/01/20 11:51 Ketorolac 30mg/Ml Vial IV 08/01/20 11:49 30 mg ONCE ONE Administration Morphine Sulfate 4 mg 08/01/20 10:49 08/01/20 10:54 Morphine 4mg/Ml Syringe IV 08/01/20 10:50 4 mg ONCE ONE Administration Morphine Sulfate 4 mg 08/01/20 11:58 08/01/20 12:01 Morphine 4mg/Ml Syringe IV 08/01/20 11:59 4 mg ONCE ONE Administration Ondansetron HCl 4 mg 08/01/20 10:49 08/01/20 10:52 Ondansetron 4mg/2ml Vial IV 08/01/20 10:50 4 mg ONCE ONE Administration Ondansetron HCl 4 mg 08/01/20 13:32 08/01/20 13:34 Ondansetron 4mg/2ml Vial IV 08/01/20 13:33 4 mg ONCE ONE Administration ORDERS Category Date Time Status Basic Metabolic Panel AMLAB Lab 08/02/20 06:00 Ordered Comprehensive Metabolic Panel [facility] Lab 08/02/20 06:00 Ordered Lipid Panel [facility] Lab 08/02/20 06:00 Ordered Magnesium [facility] Lab 08/02/20 06:00 Ordered Phosphorous AMLAB Lab 08/02/20 06:00
--- NOTE | 2020-08-01 13:39 | PC.NURSE ---
paged for milly.
--- NOTE | 2020-08-01 13:43 | PC.NURSE ---
Dr valenzulea speaking with Dr Poe
--- NOTE | 2020-08-01 14:46 | PC.NURSE ---
REPORT CALLED TO FLOOR
--- NOTE | 2020-08-01 15:16 | PC.NURSE ---
Pt arrived to the floor at this time.
--- NOTE | 2020-08-01 15:31 | HMH.PHAVTE ---
[facility] Pharmacy VTE Monitoring - Patient Demographics Admission date: 08/01/20 Report Date: 08/01/20 Time: 15:31 Allergies/Adverse Reactions: Patient Allergies naproxen Allergy (Mild, Verified 11/28/19 09:31) Rash venlafaxine [From Effexor] Allergy (Mild, Verified 11/28/19 09:31) nausea and vomiting Height: 1.52 m Weight: 81.647 kg Patient Problems: Current Active Problems Calculus of kidney (Acute) - VTE Risk Labs: VTE Related Lab Results Hgb 13.2 g/dL (12.2-16.2) 08/01/20 10:45 Hct 40.5 % (37.0-47.0) 08/01/20 10:45 Plt Count 189 K/mm3 (142-424) 08/01/20 10:45 BUN 13 mg/dl (7-17) 08/01/20 10:45 Creatinine 0.80 mg/dl (0.52-1.04) 08/01/20 10:45 Estimated Creat Clear 106 mL/min (50-200) 08/01/20 10:45 - Prophylaxis VTE Prophylaxis Ordered?: Yes Types of VTE Prophylaxis: TEDS Knee High Location of Applied Device: Bilateral Lower Extremeties
--- NOTE | 2020-08-01 17:54 | PC.NURSE ---
REPORT RECEIVED FROM Gregory SIMS RN
--- NOTE | 2020-08-01 18:06 | PC.NURSE ---
REPORT GIVEN TO SIVA LIRA. PT MOVED TO ROOM 280
--- NOTE | 2020-08-01 18:10 | PC.NURSE ---
pT ARRIVED to unit at this time. a/ox4. poc explained and pt agreeable. rates pain a 4/10- reports just dull pain and patient can tolerate this. pt is shaky from pain medication given. on 1 liter of o2 r/t pain medicine. denies sob. lungs cta and bowel active x4. iv infusing to left ac. no edema noted. pulses 2+. no needs voiced. instructed patient to call out if she needed to use restroom
--- NOTE | 2020-08-01 18:48 | PC.NURSE ---
pt still eating dinner, refused yonatan hose at this time reports she may wear later
--- NOTE | 2020-08-01 19:06 | PC.NURSE ---
report given to bud diaz rn
[2020-08-02 02:07] LABS: Microscopic, Urine URINE MICROSCOPIC (MICROSCOPIC)
[2020-08-02 02:09] LABS: Appearance,Urine CLEAR (Clear); Bilirubin,Urine Negative (Negative); Blood, Urine Negative (Negative); Color,Urine YELLOW (Yellow); Glucose,Urine (UA) Negative (Negative); Ketones,Urine Negative (Negative); Leukocyte Esterase,Urine Negative (Negative); Nitrate,Urine Negative (Negative); Protein,Urine Negative (Negative); Urobilinogen,Urine 0.2 EU/dl (0.2)
[2020-08-02 02:16] LABS: Bacteria,Urine 1+ /lpf; Mucus,Urine 1+ /lpf
[2020-08-02 04:00] VITALS: BP 97/58; PULSE 77; RESP 18; TEMP 37.2; O2SAT 97; BMI 36.5
--- NOTE | 2020-08-02 04:26 | PC.NURSE ---
PT HAS SLEPT THROUGHTOUT THE NIGHT.LUNGS CLEAR,RESP.EVEN AND UNLABORED.[employer] PRINCIPAL TO TOUCH,PT DENIES ANY N/V,BOWEL SOUNDS ACTIVE.PT HAS VOIDED ONCE TONIGHT 500ML CONCENTRATED URINE.URINE STRAINED WITHOUT STONES OR SEDIMENT.UA HAD 1+ BACTERIA AND MUCUS,NO LEUKS.SAT LEVEL 97% ON RA THIS MORNING.AFEBRILE PT DENIES ANY NEED FOR PAIN MEDICINE,WILL CONTINUE TO MONITOR
--- NOTE | 2020-08-02 07:17 | HMH.PHAINT ---
MEDICATION RECONCILIATION COMPLETED ON PATIENT USING EXTERNAL FILL HISTORY FROM PHARMACY. -TERESA WHITMORE, TAMMIED
--- NOTE | 2020-08-02 07:42 | HMH.HPDC ---
General - General Admission date:: 08/01/20 Discharge date: 08/02/20 *Admission Date: 08/01/20 *Chief complaint: Right lower quadrant pain *History of present illness: 50-year-old female with history of diabetes and hypertension presented to the emergency department yesterday morning with complaints of right lower quadrant pain. Work-up revealed a 2 mm kidney stone at the right UVJ. On presentation patient had intractable pain and vomiting. Vomiting was able to be controlled with antiemetics but pain persisted and patient required several doses of intravenous pain medication. Decision was made to admit the patient for pain control. [facility] History I have reviewed the patient's past medical history: Yes Medical History: Denies:: Cancer, Diabetes Mellitus Type 1, Diabetes Mellitus Type 2, Internal Pacemaker, MRSA, Seizures *Have you ever received a pneumonia vaccine?: No *Have you received a flu vaccine this season?: Yes Other Medical History: Denies: Blood Transfusion Reaction Other Surgeries: Yes: (1989, ), Dilation and Curettage, Tubal Ligation. No: Pacemaker Amputation: No Fractures: Yes (right elbow) - *Social History Smoking Status: Current every day smoker # Packs/Day (cigarettes): 1 Alcohol Intake: never Substance Use Type: other *Occupational Status:: employed Housing: house Household Members: other *Travel in the last 8 weeks: None Family Hx:: No significant family history Review of Systems - Constitutional Denies anorexia - Eyes Denies blind spots - ENT Denies abnormal hearing - *Cardiovascular Denies chest pain - *Respiratory Denies change in phlegm color - *Gastrointestinal Reports abdominal pain - *Genitourinary Denies abnormal periods - *Musculoskeletal Denies abnormal walking - Integumentary/Breasts Denies bleeding lesions - *Neurologic Denies dizziness, Denies headache(s) Exam Vital signs and Labs for Last 24 Hours: Temp Pulse Resp BP Pulse Ox 98.9 F 77 18 97/58 L 97 08/02/20 04:00 08/02/20 04:00 08/02/20 04:00 08/02/20 04:00 08/02/20 04:00 Laboratory Results - last 24 hr 08/01/20 10:45: WBC 10.3, RBC 4.57, Hgb 13.2, Hct 40.5, MCV 88.5, MCH 28.9, MCHC 32.6, RDW 13.6, Plt Count 189, MPV 10.3, Neut % (Auto) 49.5, Lymph % (Auto) 43.7, [place] % (Auto) 4.9, Eos % (Auto) 1.2, Baso % (Auto) 0.8, Neut # (Auto) 5.1, Lymph # (Auto) 4.5, [place] # (Auto) 0.5, Eos # (Auto) 0.1, Baso # (Auto) 0.1 08/01/20 10:45: Sodium 137, Potassium 4.1, Chloride 106, Carbon Dioxide 22, Anion Gap 13.1, BUN 13, Creatinine 0.80, Estimated Creat Clear 106, Estimated GFR 75, Est GFR ( Amer) 91, Glucose 168 H, Calcium 9.7, Total Bilirubin 0.6, AST 27, ALT 24, Alkaline Phosphatase 71, Total Protein 7.3, Albumin 4.5, Globulin 2.8, Albumin/Globulin Ratio 1.6 08/02/20 02:00: Urine Color Yellow, Urine Appearance Clear, Urine pH 6.0, Ur Specific [place] 1.020, Urine Protein Negative, Urine Glucose (UA) Negative, Urine Ketones Negative, Urine Blood Negative, Urine Nitrate Negative, Urine Bilirubin Negative, Urine Urobilinogen 0.2, Ur Leukocyte Esterase Negative, Urine WBC 3-5, Ur Squamous Epith Cells 3-5, Urine Bacteria 1+, Urine Mucus 1+ I & O for Last 24 hours: Intake & Output 07/30/20 07/31/20 08/01/20 08/02/20 11:59 11:59 11:59 11:59 Intake Total 1344 / 1344 Output Total 500 / 500 Balance 844 / 844 Weight 180 lb 186 lb 3 oz Microbiology Reports for the Last 24 Hours: Microbiology 08/01/20 13:48 Nasopharyngeal Coronavirus COVID-19 PCR - Final - *Routine HEENT Exam Head: Present: normocephalic Eye: Present: EOMI, PERRL ENT: Present: mucous membranes moist - *Routine Neck Exam Present: supple. Absent: lymphadenopathy - *Routine Respiratory Exam Present: CTA bilaterally - *Routine Cardiovascular Exam Present: RRR - *Routine Abdominal Exam Present: soft, normoactive bowel sounds, tenderness (Deep palpation of right lower quadrant) - *Routin
[2020-08-02 08:00] VITALS: BP 92/49; PULSE 88; RESP 18; TEMP 37.8; O2SAT 99
[2020-08-02 09:00] VITALS: O2SAT 95
--- NOTE | 2020-08-02 10:00 | PC.NURSE ---
IV fluids increased to 250ml/hr
[2020-08-02 10:06] VITALS: BP 87/50; PULSE 74; RESP 18; TEMP 37.4; O2SAT 95
[2020-08-02 12:43] VITALS: BP 81/44; PULSE 87; RESP 18; TEMP 36.9
--- NOTE | 2020-08-02 15:02 | PC.NURSE ---
REPORT TO PANKAJ GUILLEN.
[2020-08-02 16:19] VITALS: BP 129/74; PULSE 69; RESP 18; TEMP 37.3; O2SAT 99
== END 2020-08-02 16:45 | disposition home or self-care (01) ==
LOC: ER 13:46 → 2ND 15:35 → OB 16:21
PROVIDERS: Admitting Provider Family Medicine; Emergency Provider Emergency Medicine; PCP Family Medicine; Visit Provider Family Medicine
DX: N20.0 Calculus of kidney (principal); Z72.0 Tobacco use
CPT/HCPCS: 74176; 80053; 81001; 85025; 96365; 96375; 96376; 99284; G0378; J2405; U0003

== ENCOUNTER → 2020-09-05 13:00 | Outpatient (CLI) | payer OTHER, SELFPAY ==
--- NOTE | 2020-09-05 13:03 | US_ITS ---
PROCEDURE: MM DIG MAMM BI DX W/CAD Digital Breast Tomosynthesis Included CLINICAL INDICATION: 6 MONTH F/U ON LT SCREENING ON RT COMPARISON: MG DMSB DIG MAMM-SCREEN [place] W/CAD from 08/26/2016 MG SCBI MM Dig screening mamm BI w/CAD from 08/30/2017 MG DIG MAMM-SCREEN [place] from 09/05/2018 MG MM DIG SCREENING MAMM BI W/CAD from 09/12/2019 MG MM DIG MAMM DX UNILAT LT CAD from 09/20/2019 MG MM DIG MAMM DX UNILAT LT CAD from 03/06/2020 US US BREAST LT COMPLETE from 03/06/2020 US US BREAST LT COMPLETE from 09/05/2020 TECHNIQUE: Standard CC and MLO images and 3D Tomosynthesis was obtained. R2 CAD reviewed. FINDINGS: Average fibroglandular tissue. No malignant appearing mass or malignant-appearing microcalcification. Minimal nodularity in the central left breast appears to compress out on the MLO view. On the CC view there is some persistent nodularity in the central left breast middle 1/3 as seen on the tomographic images measuring 7 x 7 mm. This appears slightly larger The right breast has an unremarkable appearance. Left breast ultrasound: At 12 o'clock there is a septated complicated cyst measuring 8 mm near the nipple and may account for the mammographic abnormality. There is an additional hypoechoic nodule at 12 o'clock near the nipple at 5 mm. At 2 o'clock there is a 5 mm hypoechoic nodule near the nipple IMPRESSION: Discordant nodule in the central aspect of the left breast. The nodule appears slightly larger however the sonographic appearance is similar. Suggest ultrasound-guided fine needle aspiration with mammogram to follow to confirm that this nodule actually represents the sonographic nodule. BI-RAD Category: 3 Probably Benign Finding Short Term Follow-Up FOLLOW-UP: Suggest ultrasound-guided fine needle aspiration of the discordant nodule of the left breast (A letter has been sent to the patient regarding results of the study.) Dictated by: Elvis Acevedo MD 09/06/2020 10:53 Elvis Acevedo MD in [place] 09/06/2020 10:53
== END ==
LOC: RAD 13:00
PROVIDERS: PCP Family Medicine; Visit Provider Family Medicine
DX: R92.8 Other abnormal and inconclusive findings on diagnostic imaging of breast (principal); Z09 Encounter for follow-up examination after completed treatment for conditions other than malignant neoplasm
CPT/HCPCS: 76641; 77062; 77066; G0279

== ENCOUNTER → 2020-09-19 09:41 | Outpatient (CLI) | payer OTHER, SELFPAY ==
--- NOTE | 2020-09-19 | MM_ITS ---
PROCEDURE: US FNA BREAST CLINICAL INDICATION: LT BREAST NODULE COMPARISON: MG DIG MAMM-SCREEN MADISON from 09/05/2018 US US BREAST LT COMPLETE from 09/05/2020 MG MM DIG MAMM BI DX W/CAD from 09/05/2020 MG MM DIG MAMM DX UNILAT LT CAD from 09/19/2020 FINDINGS: Technique: Following obtaining informed consent and time-out procedure under aseptic conditions and local anesthesia with 1 percent buffered lidocaine with sonographic guidance, 21 gauge needle was inserted into the complex cystic nodule at 12 o'clock. Less than 1 mL aspirate was obtained. The nodule was completely aspirated. The patient tolerated the procedure well without evidence of immediate complication and left radiology suite in stable condition. Cytology: Negative for malignant cells. Post biopsy mammogram: The nodular density in the central retroareolar region is once again noted but does appears somewhat less apparent compared to the previous exam at 6.8 x 5.8 mm compared to the pre aspiration mammogram of 7.6 x 7.4 mm. This nodule is better. Demonstrated on the tomographic images. The nodule is not well delineated on the mL 0 view. Spot compression views were also obtained. IMPRESSION: Status post uneventful FNA of retroareolar nodule which shows benign findings. Mammographic nodule is somewhat less apparent. Continued six-month post biopsy mammogram and ultrasound follow-up suggested per routine protocol. Dictated by: Elvis Acevedo MD 09/27/2020 13:01 Elvis Acevedo MD in [place] 09/27/2020 13:01
== END ==
LOC: RAD 09:42
PROVIDERS: PCP Family Medicine; Visit Provider Family Medicine
DX: N63.20 Unspecified lump in the left breast, unspecified quadrant (principal)
CPT/HCPCS: 10005; 77061; 77065; G0279

== ENCOUNTER → 2020-10-14 16:55 | Outpatient (CLI) | payer OTHER, SELFPAY ==
--- NOTE | 2020-10-14 17:03 | XR_ITS ---
PROCEDURE: XR HAND RT MIN 3V CLINICAL INDICATION: ARTHRITIS OF CMC JOINT OF RIGHT THUMB COMPARISON: No exams were available for comparison FINDINGS: No fracture or dislocation. No lytic or blastic change. There is normal mineralization. Mild osteoarthritic changes noted involving the 1st carpal metacarpal junction Other findings:None. IMPRESSION: Mild osteoarthritis 1st metacarpal-carpal joint Dictated by: Elvis Acevedo MD 10/14/2020 17:40 Elvis Acevedo MD in [place] 10/14/2020 17:40
--- NOTE | 2020-10-14 17:04 | XR_ITS ---
PROCEDURE: XR CERVICAL SPINE 5V CLINICAL INDICATION: NECK PAIN COMPARISON: No exams were available for comparison FINDINGS: No fracture or dislocation. No lytic or blastic change. There is normal mineralization. Degenerative disc disease is present at C4-C5 C5-C6 and C6-C7. There is straightening of the cervical lordosis. Foraminal narrowing is present on right at C5-C6 and on the left at C5-C6. There is minimal cervical curvature convex left. No acute fracture or dislocation is apparent. There is fusion of the right 1st and 2nd ribs. No cervical rib is apparent. IMPRESSION: Degenerative changes of the cervical spine as described above Dictated by: Elvis Acevedo MD 10/14/2020 17:39 Elvis Acevedo MD in [place] 10/14/2020 17:39
== END ==
LOC: RAD 16:56
PROVIDERS: PCP Family Medicine; Visit Provider Family Medicine
DX: M54.2 Cervicalgia (principal); M18.11 Unilateral primary osteoarthritis of first carpometacarpal joint, right hand
CPT/HCPCS: 72050; 73130

== ENCOUNTER → 2021-03-27 12:56 | Outpatient (CLI) | payer OTHER, SELFPAY ==
--- NOTE | 2021-03-27 13:00 | XR_ITS ---
PROCEDURE INFORMATION: Exam: XR Right Ribs with PA Chest Exam date and time: 03/27/2021 1:00 PM Age: 51 years old Clinical indication: Injury or trauma; Other: PT. Hit ribs on crib; Rib area; Swelling (edema); Additional info: RT rib pain TECHNIQUE: Imaging protocol: XR Right ribs with PA chest. Views: 3 views COMPARISON: CHESTW CT chest w con 12/07/2017 4:27 PM FINDINGS: Lungs: Unremarkable. No consolidation. Pleural spaces: Unremarkable. No pleural effusion. No pneumothorax. Heart/Mediastinum: Unremarkable. No cardiomegaly. Bones/joints: Unremarkable. IMPRESSION: No acute findings.
== END ==
LOC: RAD 12:58
PROVIDERS: PCP Family Medicine; Visit Provider Family Medicine
DX: R07.81 Pleurodynia (principal)
CPT/HCPCS: 71101

== ENCOUNTER → 2021-04-04 14:01 | Outpatient (CLI) | payer OTHER, SELFPAY ==
--- NOTE | 2021-04-04 14:03 | MM_ITS ---
PROCEDURE INFORMATION: Exam: MG Left Diagnostic Breast Tomosynthesis Exam date and time: 04/04/2021 2:03 PM Age: 51 years old Clinical indication: 6 month f/u, post bx TECHNIQUE: Imaging protocol: Left Diagnostic tomosynthesis and 2D mammography including computer-aided detection (CAD) when performed. Unilateral or bilateral exam. COMPARISON: 1. MG MM DIG MAMM DX UNILAT LT CAD 09/19/2020 10:50 AM 2. MG MM DIG MAMM BI DX W/CAD 09/05/2020 1:00 PM FINDINGS: MAMMOGRAPHY: The breast tissue is composed of scattered areas of fibroglandular density. There is no stellate mass, architectural distortion or suspicious microcalcifications to suggest malignancy. Spot compression views of the middle third of the left central to breast the left 12 o'clock axis demonstrates a 0.5 cm mass. This appears to be the site of prior biopsy. No skin thickening or axillary adenopathy. IMPRESSION: Focal left breast ultrasound is recommended to follow-up a 0.5 cm mass in the left 12 o'clock axis ASSESSMENT: BI-RADS Category 0: Incomplete- Need Additional Imaging Evaluation and/or Prior Mammograms for Comparison
--- NOTE | 2021-04-04 14:04 | US_ITS ---
PROCEDURE INFORMATION: Exam: US Left Breast, Complete Exam date and time: 04/04/2021 2:04 PM Age: 51 years old Clinical indication: 6 month f/u, post bx TECHNIQUE: Imaging protocol: Complete ultrasound of all four quadrants of the Left breast and the retroareolar regions, including ultrasound of the axilla when performed. COMPARISON: US FNA BREAST 09/19/2020 10:08 AM FINDINGS: Breast: Sonographic images of the left 12 o'clock axis demonstrates a a lobulated mixed echotexture mass possibly reflecting a cluster of debris-filled cysts measuring 0.9 cm in greatest dimension. Intracystic papillary lesion is also a consideration. This appears to most closely correspond to the mass on mammography and the site of prior biopsy. It appears slightly more prominent compared to pre biopsy sonographic images. IMPRESSION: Ultrasound-guided core biopsy of the left 12 o'clock axis with clip placement and subsequent post biopsy left mammogram are recommended for further evaluation of a recurrent to enlarging mass in the 12 o'clock axis. Clip placement and post biopsy mammogram are recommended to ensure accurate correlation between the mammographic and sonographic findings. ASSESSMENT: BI-RADS Category 4: Suspicious
== END ==
LOC: RAD 14:01
PROVIDERS: PCP Family Medicine; Visit Provider Family Medicine
DX: R92.8 Other abnormal and inconclusive findings on diagnostic imaging of breast (principal); Z09 Encounter for follow-up examination after completed treatment for conditions other than malignant neoplasm
CPT/HCPCS: 76641; 77061; 77065; G0279

== ENCOUNTER → 2021-04-15 17:23 | Outpatient (CLI) | payer OTHER, SELFPAY ==
[2021-04-15 17:52] LABS: Platelet Count 242 K/mm3 (142-424)
[2021-04-15 18:16] LABS: Activated Partial Thrombo Time 28.2 seconds (22.8-30.6); INR 0.91 (0.9-1.1); Prothrombin Time 10.4 seconds (10.1-12.5)
== END ==
PROVIDERS: Visit Provider Family Medicine
DX: R92.8 Other abnormal and inconclusive findings on diagnostic imaging of breast (principal)
CPT/HCPCS: 36415; 85049; 85610; 85730

== ENCOUNTER → 2021-05-19 09:46 | Outpatient (CLI) | payer OTHER, SELFPAY ==
[2021-05-20 06:45] LABS: Covid-19 Nasal PCR Sendout Lex NOT DETECTED
== END ==
PROVIDERS: PCP Family Medicine; Visit Provider Nurse Practitioner
DX: Z20.822 Contact with and (suspected) exposure to COVID-19 (principal)
CPT/HCPCS: C9803; U0004; U0005

== ENCOUNTER → 2021-08-15 13:31 | Outpatient (CLI) | payer OTHER, SELFPAY ==
--- NOTE | 2021-08-15 13:36 | XR_ITS ---
FINAL REPORT CLINICAL HISTORY: RIGHT LEG NUMBNESS...LUMBAGO WITH SCIATICA, RIGHT SIDE FINDINGS: LUMBAR SPINE. Five views demonstrate no acute fracture. The disc spaces are well preserved. There is minimal spondylolisthesis of L5 on S1. IMPRESSION: Degenerative spondylolisthesis of L5 on S1. Reviewed, Interpreted and Dictated by Carmelo Sousa MD Transcribed by Cleopatra Mejia Authenticated by Carmelo Sousa MD on 08/15/2021 02:32:04 PM [facility]
--- NOTE | 2021-08-15 13:37 | XR_ITS ---
FINAL REPORT CLINICAL HISTORY: RIGHT POSTERIOR HIP PAIN COMPARISON: 12/16/2018 FINDINGS: RIGHT HIP Three views were obtained. There is no acute fracture or dislocation. The joint spaces appear normal. No soft tissue abnormality is identified. IMPRESSION: No acute process. Reviewed, Interpreted and Dictated by Carmelo Sousa MD Transcribed by Cleopatra Mejia Authenticated by Carmelo Sousa MD on 08/15/2021 02:32:07 PM [facility]
== END ==
PROVIDERS: PCP Nurse Practitioner Family; Visit Provider Nurse Practitioner Family
DX: M54.41 Lumbago with sciatica, right side (principal); M25.551 Pain in right hip; R20.0 Anesthesia of skin
CPT/HCPCS: 72110; 73502

== ENCOUNTER → 2021-08-25 16:38 | Outpatient (CLI) | payer OTHER, SELFPAY ==
--- NOTE | 2021-08-25 16:41 | MR_ITS ---
PROCEDURE INFORMATION: Exam: MR Lumbar Spine Without Contrast Exam date and time: 08/25/2021 4:44 PM Age: 51 years old Clinical indication: Low back pain; Additional info: Lumbago w/ sciatica, RT side TECHNIQUE: Imaging protocol: Multiplanar magnetic resonance images of the lumbar spine without intravenous contrast. COMPARISON: CR XR LUMBAR SPINE MIN 4V 08/15/2021 1:39 PM FINDINGS: The numbering scheme assumes the presence of a lumbarized S1 body with a rudimentary disc. Levels should be confirmed prior to planned surgical intervention. Vertebrae: There is a mild lumbar levoscoliosis. There is accentuation of the normal lumbar lordosis. There is no fracture or listhesis. Spinal cord: Normal signal. No cord compression. L1-L2: There is shallow disc bulging. The spinal canal and neural foramina are patent. L2-L3: There is shallow disc bulging. There is mild facet hypertrophy. The spinal canal and neural foramina are patent. . L3-L4: There is shallow disc bulging. There is mild facet hypertrophy. There is mild bilateral neural foraminal narrowing. L4-L5: There is shallow disc bulging. There is mild facet hypertrophy. There is mild bilateral neural foraminal narrowing. L5-S1: There is shallow disc bulging. There is moderate to severe facet hypertrophy. Fluid is noted within the facet joints. There is moderate to severe right neural foraminal narrowing. Soft tissues: Unremarkable. IMPRESSION: Degenerative disc disease and spondylosis. At L5/S1, changes contribute to moderate to severe right neural foraminal narrowing, with potential compromise of the exiting right L5 nerve root.
== END ==
LOC: RAD 16:38
PROVIDERS: PCP Nurse Practitioner Family; Visit Provider Nurse Practitioner Family
DX: M54.41 Lumbago with sciatica, right side (principal)
CPT/HCPCS: 72148; 76376

== ENCOUNTER → 2021-09-04 08:13 | Outpatient (POV) | payer OTHER, SELFPAY ==
[2021-09-04 08:30] VITALS: BP 147/88; PULSE 94; RESP 18; TEMP 36.7; O2SAT 100; BMI 35.2
--- NOTE | 2021-09-04 09:22 | HMH.PMCON ---
Assessment and Plan (1) Degenerative joint disease (DJD) of lumbar spine Status: Acute Category: Medical Code(s): M47.816 - Spondylosis without myelopathy or radiculopathy, lumbar region (2) Lumbar radiculopathy Status: Acute Category: Medical Code(s): M54.16 - Radiculopathy, lumbar region (3) Facet arthropathy Status: Acute Category: Medical Code(s): M47.819 - Spondylosis without myelopathy or radiculopathy, site unspecified (4) Lumbar spondylosis Status: Acute Category: Medical Code(s): M47.816 - Spondylosis without myelopathy or radiculopathy, lumbar region - Assessment and plan all Dx Assessment and Plan for all problems:: IMAGING: PROCEDURE INFORMATION: Exam: MR Lumbar Spine Without Contrast Exam date and time: 08/25/2021 4:44 PM Age: 51 years old Clinical indication: Low back pain; Additional info: Lumbago w/ sciatica, RT side TECHNIQUE: Imaging protocol: Multiplanar magnetic resonance images of the lumbar spine without intravenous contrast. COMPARISON: CR XR LUMBAR SPINE MIN 4V 08/15/2021 1:39 PM FINDINGS: The numbering scheme assumes the presence of a lumbarized S1 body with a rudimentary disc. Levels should be confirmed prior to planned surgical intervention. Vertebrae: There is a mild lumbar levoscoliosis. There is accentuation of the normal lumbar lordosis. There is no fracture or listhesis. Spinal cord: Normal signal. No cord compression. L1-L2: There is shallow disc bulging. The spinal canal and neural foramina are patent. L2-L3: There is shallow disc bulging. There is mild facet hypertrophy. The spinal canal and neural foramina are patent. . L3-L4: There is shallow disc bulging. There is mild facet hypertrophy. There is mild bilateral neural foraminal narrowing. L4-L5: There is shallow disc bulging. There is mild facet hypertrophy. There is mild bilateral neural foraminal narrowing. L5-S1: There is shallow disc bulging. There is moderate to severe facet hypertrophy. Fluid is noted within the facet joints. There is moderate to severe right neural foraminal narrowing. Soft tissues: Unremarkable. IMPRESSION: Degenerative disc disease and spondylosis. At L5/S1, changes contribute to moderate to severe right neural foraminal narrowing, with potential compromise of the exiting right L5 nerve root. : Patient presents with chronic low back pain that radiates down to the right leg. She has been having trouble getting up from a sitting position. She cannot tolerate any prolonged activity such as sitting, standing, and walking. Patient has tried and failed conservative therapies such as oral medication and home exercises for greater than 6 weeks. Right SI is positive for KRISTAL, Alexis's, [place]'s, Gaenslen's, compression, and distraction. Patient is tender to palpation around the right greater trochanteric bursa. We will schedule the patient for a right SI injection and right greater trochanteric bursa injections. Risks and benefits of the procedure have been explained to the patient. Patient would like to proceed with the procedure. Per the patient's MRI, patient does have moderate to severe facet arthropathy at L5-S1. She is tender to palpation around the L5-S1 facet joints. If the SI injections do not help the patient significantly, we will consider doing medial branch block injections at L4-L5 and L5-S1. Patient has been instructed to contact the clinic with any concerns before the next appointment. Dr. Pettit has reviewed this note and agrees with this plan of care. This note was dictated using voice recognition software and make contain errors or omissions. HPI - Data of Consult Patient: new to practice Consult date: 09/04/21 Requesting Physician: ESPINOZA Rene - Consult Narrative Reason for consult: Low back pain History of
== END ==
PROVIDERS: Visit Provider Student in an Organized Health Care Education/Training Program
DX: M47.896 Other spondylosis, lumbar region (principal); M54.16 Radiculopathy, lumbar region
CPT/HCPCS: 99202; G0463

== ENCOUNTER 2021-09-05 08:13 | Day surgery (SDC) | payer OTHER, SELFPAY ==
[2021-09-05 08:23] VITALS: BP 137/77; PULSE 77; RESP 20; TEMP 36.7; O2SAT 100; BMI 35.2
[2021-09-05 09:07] VITALS: BP 113/72; PULSE 64; RESP 18; O2SAT 100
[2021-09-05 09:08] VITALS: BP 120/77; PULSE 61; RESP 18; O2SAT 100
[2021-09-05 09:25] VITALS: BP 138/84; PULSE 59; RESP 20; O2SAT 99
--- NOTE | 2021-09-05 09:25 | P.PCN_ITS ---
- Procedure Date: 09/05/21 Time: 09:25 Anesthesiologist:: Yamil Sarmiento CRNA Complications:: None Pre-procedure Diagnosis:: Right sacroiliitis. Right trochanteric bursitis. Post-procedure Diagnosis:: Right sacroiliitis. Right trochanteric bursitis Indications for Procedure:: Patient is a very pleasant 51-year-old female that comes to our injection clinic today for right SI joint injection as well as right trochanteric bursa injection. Patient has extreme point tenderness over each area. She rates the pain 7/10. Procedure Details:: Procedure: Right sacroliliac joint injection under fluoroscopy Informed consent was obtained and the risk and benefits of the procedure were explained to the patient.~ The patient was taken to the procedure room and non invasive monitors were placed including noninvasive blood pressure cuff and pulse oximeter.~ The patient was placed prone on the procedure table.~ The~ right hip was cleansed using Betadine as a cleansing solution.~ C-arm fluorosocpy was used to view the right SI joint.~ The skin and subcutaneous tissues were anesthetized using Lidocaine 1.5% and a 25-gauge needle.~ After this, a 22-gauge spinal needle was inserted under fluoroscopic guidance into the inferior aspect of the right SI joint.~ Omnipaque dye was injected and a good spread was seen throughout the joint.~ After this, approximately 5 mL of bupivacaine 0.25% and Depo-Medrol 40 mg was incrementally injected into the sacroiliac joint.~ The patient tolerated the procedure well with no complications.~ The patient was observed in the Pain Clinic, then discharged home neurologically intact.~ Procedure: Right trochanteric bursa injection under fluoroscopy We then moved to the right trochanteric bursa.~ C-arm fluoroscopy was used to view the left greater trochanter.~ The skin and subcutaneous tissues overlying the right greater trochanter were anesthetized using lidocaine, 1.5% and a 25- gauge needle.~ After this, a 22-gauge spinal needle was inserted and advanced until it contacted the right greater trochanter.~ Dye was injected and good spread was seen throughout the right trochanteric bursa. After this, approximately 5 mL of bupivacaine, 0.25% and Depo-Medrol, 40 mg was incrementally injected into the right right trochanteric bursa.~ The patient tolerated the procedure well with no complications. Plan and Disposition:: Patient was discharged without incident.
== END 2021-09-05 09:26 | disposition home or self-care (01) ==
LOC: SC.PAINP 08:14
PROVIDERS: PCP Nurse Practitioner Family; Visit Provider Nurse Anesthetist, Certified Registered
DX: M46.1 Sacroiliitis, not elsewhere classified (principal); M70.61 Trochanteric bursitis, right hip; Z72.0 Tobacco use; J45.909 Unspecified asthma, uncomplicated; Z88.8 Allergy status to other drugs, medicaments and biological substances
CPT/HCPCS: 20610; 27096; 77002; G0260; J1040

== ENCOUNTER → 2021-09-19 13:49 | Outpatient (CLI) | payer OTHER, SELFPAY ==
--- NOTE | 2021-09-19 13:53 | MM_ITS ---
PROCEDURE INFORMATION: Exam: MG Bilateral Diagnostic Breast Tomosynthesis Exam date and time: 09/19/2021 1:59 PM Age: 51 years old Clinical indication: Screening. Follow-up to left breast biopsy 04/07/2021. No family history of breast cancer. TECHNIQUE: Imaging protocol: Bilateral Diagnostic tomosynthesis and 2D mammography including computer-aided detection (CAD) when performed. Unilateral or bilateral exam. COMPARISON: 1. MG MM DIG MAMM DX UNILAT LT CAD 04/04/2021 2:02 PM 2. MG MM DIG MAMM DX UNILAT LT CAD 09/19/2020 10:50 AM 3. MG MM DIG MAMM BI DX W/CAD 09/05/2020 1:00 PM 4. MG MM DIG MAMM DX UNILAT LT CAD 03/06/2020 2:49 PM FINDINGS: MAMMOGRAPHY: Breast composition: There are scattered areas of fibroglandular density. Mass: Biopsy clip related to stable or smaller 0.5 cm oval mass in the left breast 12 o'clock middle 3rd. Architectural distortion: None. Calcifications: No suspicious calcifications. Asymmetric density: None. Skin thickening: None. Axillary adenopathy: None. IMPRESSION: No mammographic evidence of malignancy. Annual screening mammogram recommended unless otherwise clinically indicated. ASSESSMENT: BI-RADS Category 2: Benign
== END ==
PROVIDERS: PCP Nurse Practitioner Family; Visit Provider Nurse Practitioner Family
DX: R92.8 Other abnormal and inconclusive findings on diagnostic imaging of breast
CPT/HCPCS: 77062; 77066; G0279

== ENCOUNTER → 2021-09-25 12:57 | Outpatient (POV) | payer OTHER, SELFPAY ==
[2021-09-25 13:15] VITALS: BP 125/78; PULSE 78; RESP 18; TEMP 36.7; O2SAT 99; BMI 35.2
--- NOTE | 2021-09-25 13:15 | HMH.PAINSOAP ---
[facility] Pain Management SOAP Note Subjective:: Patient is a pleasant 51-year-old female who presents today for follow-up after a right SI injection on September 13, 2021. Patient is currently being treated for low back pain, right-sided sacroiliitis. After procedure, patient had significant relief of 80 to 90% and rates her pain today as 1 out of 10. Since the procedure, patient has been able to increase her activity. Patient does work as a medical logistics specialist in the hospital. She states that she is now able to walk from the office to the cafeteria and back without any pain. She has been able to sleep longer. She says that she feels like there is still some pain but is definitely a lot better. She only gets significant pain whenever she has her grandkids due to the significant increase in activity. Patient also states that the diclofenac was helping her pain. She is wanting refills on this medication. Agapito [id number] with an active morphine equivalent of 0. Review of Systems: General: No recent weight changes, no fever, no sleep disturbances Respiratory: No cough, no shortness of air, no recurring pulmonary infections Cardiovascular/peripheral vascular: No chest pain, no palpitations, no edema, no shortness of breath Gastrointestinal: No new onset incontinence, normal bowel movements reported Genitourinary: No new onset incontinence Musculoskeletal: Low back pain, right hip pain Psychiatric: [Normal mood/affect] Neurological: [Denies weakness in extremities], [denies balance issues] Objective:: Physical Exam: General: Alert and oriented x3, no acute distress, pleasant and cooperative Lungs: Respirations even and unlabored, symmetrical chest expansion Eyes: PERRL Musculoskeletal: Flexion and extension of lumbar [spine] somewhat guarded secondary to pain, [antalgic gait noted]; Neurological: Speech clear, no gross sensory deficit Assessment:: Degenerative disease of lumbar spine, lumbar facet arthropathy, lumbar spondylosis, right-sided sacroiliitis Plan:: Patient continues to have significant relief after the right SI injection. Rates her pain today as 1 out of 10. We will continue the patient's diclofenac 75 mg twice a day. We will provide the patient with 3 months worth of refill. We will follow-up with this patient in 3 months to reevaluate chronic pain syndrome and to see if she needs repeat injections. Patient has been instructed to contact the clinic with any concerns before the next appointment. Dr. Pettit has reviewed this note and agrees with this plan of care. This note was dictated using voice recognition software and make contain errors or omissions. [facility] History Medical History: Denies:: Cancer, Diabetes Mellitus Type 1, Diabetes Mellitus Type 2, Internal Pacemaker, MRSA, Seizures *Have you ever received a pneumonia vaccine?: No *Have you received a flu vaccine this season?: Yes Other Medical History: Reports: Arthritis. Denies: Blood Transfusion Reaction Other Surgeries: Yes: (1989, ), Dilation and Curettage, Tubal Ligation. No: Pacemaker Amputation: No Fractures: Yes (right elbow) - *Social History Smoking Status: Current every day smoker Tobacco Type: cigarettes # Packs/Day (cigarettes): 1 Alcohol Intake: never Substance Use Type: other *Occupational Status:: other Housing: house Household Members: other *Travel in the last 8 weeks: Inside the [facility] Family Hx:: No significant family history
== END ==
PROVIDERS: Visit Provider Student in an Organized Health Care Education/Training Program
DX: M54.50 Low back pain, unspecified (principal); M46.1 Sacroiliitis, not elsewhere classified
CPT/HCPCS: 99212; G0463

== ENCOUNTER 2021-11-04 10:06 | Day surgery (SDC) | payer OTHER, SELFPAY ==
[2021-11-04] VITALS (9 sets, daily range): BP systolic 107–146; BP diastolic 54–75; PULSE 60–95; RESP 16–18; TEMP 36.3–36.7; O2SAT 96–100; BMI 35.2
[2021-11-04 10:25] LABS: Coronavirus 19, PCR Not Detected (NotDetected); Influenza A, PCR Not Detected (NotDetected); Influenza B, PCR Not Detected (NotDetected)
[2021-11-04 10:53] LABS: Basophils # 0.1 K/mm3 (0-0.2); Basophils % 0.6 % (0.1-2.0); Eosinophils # 0.2 K/mm3 (0.0-0.4); Eosinophils % 1.7 % (0.1-12.0); Hematocrit 36.8 % (37.0-47.0); Hemoglobin 12.5 g/dL (12.2-16.2); Lymphocytes # 2.9 K/mm3 (0.7-4.5); Lymphocytes % 31.3 % (10-50); Mean Corpuscular Hemoglobin 30.8 pg (27.0-31.2); Mean Corpuscular Volume 90.6 fl (81-99); Mean Platelet Volume 9.4 fl (7.4-10.4); Monocytes # 0.5 K/mm3 (0.1-1.0); Monocytes % 5.1 % (1.7-9.3); Neutrophils # 5.7 K/mm3 (1.8-7.8); Neutrophils % 61.2 % (37.0-80.0); Platelet Count 190 K/mm3 (142-424); Red Blood Count 4.07 M/mm3 (4.20-5.40); Red Cell Distribution Width 13.9 % (11.5-17.5); White Blood Count 9.3 K/mm3 (4.8-10.8)
[2021-11-04 11:28] LABS: Anion Gap 8.5 mEq/L (5-15); Blood Urea Nitrogen 12 mg/dl (7-17); Calcium 9.4 mg/dl (8.4-10.2); Carbon Dioxide 29 mmol/L (22.0-30.0); Chloride 106 mmol/L (98-107); Estimated Glomerular Filt Rate 75 ml/min (>60); GFR (African American) 91 ML/MIN (>60); Glucose 89 mg/dl (74-100); Potassium 4.5 mmoL/L (3.5-5.1); Sodium 139 mmol/L (136-145)
--- NOTE | 2021-11-04 14:42 | HMH.OPNOTE ---
Date of procedure: 11/04/21 Pre-op Diagnosis:: Sebaceous cyst of right upper extremity with abscess Post-op Diagnosis:: Same Procedure performed:: Incision and drainage/debridement of sebaceous cyst of right upper extremity with abscess Surgeon:: Johan Rajan MD BAKER SECOND:: Forrest Bocanegra Anesthesia: LMA Estimated blood loss (mL): 5 Operative findings:: Abscessed cyst in subcutaneous tissue Operative note:: After informed consent was obtained the patient was taken to the operating room and placed in the supine position. General anesthesia with laryngeal mask airway was achieved. Her right upper extremity was prepped and draped in a sterile fashion. Electrocautery was utilized to transect around the central portion of lesion in an elliptical manner. The deep subcutaneous tissue was carefully dissected. Purulent fluid was encountered. The fluid was obtained for gram stain/culture. Remnants of the cystic cavity were carefully debrided. The wound was packed open with Kerlix. The entire region was infiltrated with 1% lidocaine. Dressings were applied and the patient was transferred to recovery in stable condition. Condition: stable Disposition: PACU Specimens:: Fluid for gram stain/culture Sebaceous cyst Complications:: No immediate
--- NOTE | 2021-11-04 14:44 | P.PN_ITS ---
[facility] Anesthesia Checklist - Patient Identification Patient Identification: Arm Band - Structural Data Admitted From: Home Planned Operative Procedure/s: I&D Right Upper Arm Consent for Planned Operative Procedure(s) Verified: Yes Verified Documents: Surgical Consent, History and Physical - NPO Status Verified Time NPO: 00:00 - Additional verifications Anesthesia Reactions: Yes (nausea) Hx Blood Transfusions: Yes Blood Transfusion Reaction: No - Airway Assessment C-Spine Mobility Assessed: Yes (mp2) TMJ Mobility Assessed: Yes Dentition: Good Dentition - Neurological Assessment Level of Consciousness: Awake, Alert - Anesthesia Plan Anesthesia Risk discussed: Yes Anesthesia Plan: Verified ASA Class: II Anesthesia Type: General [facility] History I have reviewed the patient's past medical history: Yes Medical History: Reports:: Asthma, Hypertension Denies:: Cancer, Diabetes Mellitus Type 1, Diabetes Mellitus Type 2, MRSA, Seizures *Have you ever received a pneumonia vaccine?: No *Have you received a flu vaccine this season?: Yes Other Medical History: Reports: Arthritis. Denies: Blood Transfusion Reaction Anesthesia experience/problems:: nac Other Surgeries: Yes: (1989, ), Dilation and Curettage, Pacemaker, Tubal Ligation Amputation: No Fractures: Yes (right elbow) - *Social History Last grade of school completed: Some college Smoking Status: Current every day smoker Tobacco Type: cigarettes # Packs/Day (cigarettes): 1 Alcohol Intake: never Substance Use Type: other *Occupational Status:: employed Housing: house Household Members: other *Travel in the last 8 weeks: Inside the [facility] Family Hx:: Diabetes, Heart Attack
--- NOTE | 2021-11-04 14:45 | HMH.ANESI ---
[facility] Anesthesia Record Part I Intake, IV Amount: 400 Estimated blood loss (mL): 5 Urine output (mL): 0 Blood Pressure: 146/75 SaO2: 99 Pulse Rate: 95 Respiratory Rate: 16 Temperature: 97.6 F Patient is:: Drowsy, Stable Stable to PACU at:: 14:40
--- NOTE | 2021-11-04 15:36 | P.PN_ITS ---
[facility] Anesthesia Record Part II Discharge Time: 15:00 Destination: Surgical Day Care (OP Surgery) PACU nurse assessment reviewed?: Yes Patient Condition:: Good Anesthesia Complications:: None Swallowing reflex intact?: Yes Cyanosis?: No Blood Pressure: 116/72 Pulse Rate: 68 Temperature: 97.6 F Mental Status: Alert & Oriented Pain level:: 0 Nausea and/or vomitting:: None Intake, IV Amount: 0
== END 2021-11-04 15:35 | disposition home or self-care (01) ==
PROVIDERS: PCP Nurse Practitioner Family; Visit Provider Surgery
PROC: (CPT 10061; principal; 2021-11-04 14:00)
DX: L02.91 Cutaneous abscess, unspecified (principal); L72.3 Sebaceous cyst; I10 Essential (primary) hypertension; J45.909 Unspecified asthma, uncomplicated; Z72.0 Tobacco use
CPT/HCPCS: 10061; 36415; 80048; 85025; 87070; 87075; 87205; 96374; C9803; J2405; U0003; U0005

== ENCOUNTER → 2021-11-10 08:26 | Outpatient (POV) | payer OTHER, SELFPAY ==
[2021-11-10 09:15] VITALS: BP 120/63; PULSE 84; RESP 20; TEMP 36.6; O2SAT 99; BMI 35.2
--- NOTE | 2021-11-10 09:19 | HMH.PAINSOAP ---
[facility] Pain Management SOAP Note Subjective:: Patient is a pleasant 51-year-old female who presents today for follow-up. Patient is current being treated for right-sided sacroiliitis, low back pain. We have been managing this patient with injective therapy. She previously had a right SI injection on September 13, 2021 that provided 80 to 90% relief. Today, she presents with worsening right hip pain. This is similar to what she had before. She cannot tolerate any prolonged activity such as sitting, standing, and walking. She has trouble getting up from a sitting position. I had started her on diclofenac 75 mg twice a day which was helping. She states that this is not even taking the edge off at this time. Rates her pain today as 4 out of 10. Agapito [id number] with an active morphine equivalent of 0. Review of Systems: General: No recent weight changes, no fever, no sleep disturbances Respiratory: No cough, no shortness of air, no recurring pulmonary infections Cardiovascular/peripheral vascular: No chest pain, no palpitations, no edema, no shortness of breath Gastrointestinal: No new onset incontinence, normal bowel movements reported Genitourinary: No new onset incontinence Musculoskeletal: Right hip pain Psychiatric: [Normal mood/affect] Neurological: [Denies weakness in extremities], [denies balance issues] Objective:: Physical Exam: General: Alert and oriented x3, no acute distress, pleasant and cooperative Lungs: Respirations even and unlabored, symmetrical chest expansion Eyes: PERRL Musculoskeletal: Right SI is positive for KRISTAL, Alexis's, [place]'s, Gaenslen's, compression, and distraction. Tender to palpation to right greater trochanter bursa Neurological: Speech clear, no gross sensory deficit Assessment:: Sacroiliitis, right greater trochanteric bursitis Plan:: Patient presents today with worsening right hip pain. She does have a positive SI exam. She is tender to palpation around the right SI joint and right greater trochanteric bursa. She has tried and failed conservative therapy in the past such as physical therapy and home exercises for greater than 6 weeks. We will schedule this patient for a right SI and right greater trochanteric bursa injections. I will try this patient on tizanidine 4 mg 3 times a day. Patient has been instructed to contact the clinic with any concerns before the next appointment. Dr. Pettit has reviewed this note and agrees with this plan of care. This note was dictated using voice recognition software and make contain errors or omissions. [facility] History Medical History: Reports:: Asthma, Hypertension, Internal Pacemaker Denies:: Cancer, Diabetes Mellitus Type 1, Diabetes Mellitus Type 2, MRSA, Seizures *Have you ever received a pneumonia vaccine?: No *Have you received a flu vaccine this season?: Yes Other Medical History: Reports: Arthritis. Denies: Blood Transfusion Reaction Other Surgeries: Yes: (1989, ), Dilation and Curettage, Pacemaker, Tubal Ligation Amputation: No Fractures: Yes (right elbow) - *Social History Smoking Status: Current every day smoker Tobacco Type: cigarettes # Packs/Day (cigarettes): 1 Alcohol Intake: never Substance Use Type: other *Occupational Status:: other Housing: house Household Members: other *Travel in the last 8 weeks: None Family Hx:: Diabetes, Heart Attack
== END ==
PROVIDERS: Visit Provider Student in an Organized Health Care Education/Training Program
DX: M46.1 Sacroiliitis, not elsewhere classified (principal); M70.61 Trochanteric bursitis, right hip
CPT/HCPCS: 99212; G0463

== ENCOUNTER 2021-11-11 07:50 | Day surgery (SDC) | payer OTHER, SELFPAY ==
[2021-11-11 08:02] VITALS: BP 111/64; PULSE 75; RESP 18; TEMP 36.7; O2SAT 100; BMI 35.2
[2021-11-11 08:17] VITALS: BP 102/60; PULSE 74; RESP 20
[2021-11-11 08:25] VITALS: BP 110/68; PULSE 73; RESP 20; O2SAT 99
--- NOTE | 2021-11-11 08:47 | P.PCN_ITS ---
- Procedure Date: 11/11/21 Time: 08:47 Anesthesiologist:: Yamil Sarmiento CRNA Complications:: None Pre-procedure Diagnosis:: Right sacroiliitis. Right trochanteric bursitis. 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 She is having right buttock pain she rates 8/10. She describes her right buttock pain as constant, dull, aching. She also complains of right lateral hip pain. Upon examination she has extreme point tenderness over the right SI joint and the right trochanteric bursa. We will inject both sites today. Procedure Details:: Procedure: Right sacroliliac joint injection under fluoroscopy Informed consent was obtained and the risk and benefits of the procedure were explained to the patient.~ The patient was taken to the procedure room and noninvasive monitors were placed including noninvasive blood pressure cuff and pulse oximeter.~ The patient was placed prone on the procedure table.~ The~ right hip was cleansed using Betadine as a cleansing solution.~ C-arm fluorosocpy was used to view the right SI joint.~ The skin and subcutaneous tissues were anesthetized using Lidocaine 1.5% and a 25-gauge needle.~ After this, a 22-gauge spinal needle was inserted under fluoroscopic guidance into the inferior aspect of the right SI joint.~ Omnipaque dye was injected and a good spread was seen throughout the joint.~ After this, approximately 5 mL of bupivacaine 0.25% and Depo-Medrol 40 mg was incrementally injected into the sacroiliac joint.~ The patient tolerated the procedure well with no complications.~ The patient was observed in the Pain Clinic, then discharged home neurologically intact.~ Procedure: Right trochanteric bursa injection under fluoroscopy We then moved to the right trochanteric bursa.~ C-arm fluoroscopy was used to view the left greater trochanter.~ The skin and subcutaneous tissues overlying the right greater trochanter were anesthetized using lidocaine, 1.5% and a 25- gauge needle.~ After this, a 22-gauge spinal needle was inserted and advanced until it contacted the right greater trochanter.~ Dye was injected and good spread was seen throughout the right trochanteric bursa. After this, approximately 5 mL of bupivacaine, 0.25% and Depo-Medrol, 40 mg was incrementally injected into the right right trochanteric bursa.~ The patient tolerated the procedure well with no complications. Plan and Disposition:: Patient was discharged without incident.
== END 2021-11-11 08:26 | disposition home or self-care (01) ==
LOC: SC.PAINP 07:51
PROVIDERS: PCP Nurse Practitioner Family; Visit Provider Nurse Anesthetist, Certified Registered
DX: M46.1 Sacroiliitis, not elsewhere classified (principal); M70.61 Trochanteric bursitis, right hip; M19.90 Unspecified osteoarthritis, unspecified site; Z72.0 Tobacco use
CPT/HCPCS: 27096; G0260; J1040

== ENCOUNTER → 2021-11-27 08:25 | Outpatient (POV) | payer OTHER, SELFPAY ==
[2021-11-27 08:30] VITALS: BP 139/72; PULSE 83; RESP 20; O2SAT 100; BMI 35.2
--- NOTE | 2021-11-27 08:46 | HMH.PAINSOAP ---
[facility] Pain Management SOAP Note Subjective:: Patient is a pleasant 51-year-old female who presents today for follow-up from right SI and right trochanteric bursa injection on 11/11/2021. We are currently treating the patient for sacroiliitis, right greater trochanteric bursitis. Patient states that she got no relief from this last injection in her SI joint. Patient states minimal improvement on her right hip. Today she rates her pain a 2 out of 10 while sitting. She states this is a aching, throbbing sensation that is worse with activity. She cannot tolerate any prolonged activity such as sitting, standing, and walking. Patient has had SI injections in the past that did provide 80 to 90% relief and lasted roughly about 8 weeks. Patient denies any new trauma or injury. She denies any change to the location or type of pain she experiences. She is currently managing her pain with gabapentin 100 mg 3 times a day written by Dr. Poe and diclofenac 75 mg twice daily. Patient states that no side effects from these medications. She states these medications do help improve her pain symptoms. Her Agapito is [id number]. It has been reviewed and appropriate. Review of Systems: General: No recent weight changes, no fever, no sleep disturbances Respiratory: No cough, no shortness of air, no recurring pulmonary infections Cardiovascular/peripheral vascular: No chest pain, no palpitations, no edema, no shortness of breath Gastrointestinal: No new onset incontinence, normal bowel movements reported Genitourinary: No new onset incontinence Musculoskeletal: Low back pain, right thigh pain Psychiatric: [Normal mood/affect] Neurological: [Denies weakness in extremities], [denies balance issues] Objective:: Physical Exam: General: Alert and oriented x3, no acute distress, pleasant and cooperative Lungs: Respirations even and unlabored, symmetrical chest expansion Eyes: PERRL Musculoskeletal: Flexion and extension of lumbar [spine] somewhat guarded secondary to pain, [antalgic gait noted]. Point tenderness noted at right lower lumbar spine/SI. Positive right Parker's, Alexis's, Gaenslen's, compression and distraction test Neurological: Speech clear, no gross sensory deficit Assessment:: Sacroiliitis, right greater trochanteric bursitis Plan:: Patient had minimal relief with her last SI injection. Her previous SI injection she received significant improvement lasting 2 months. I have discussed with the patient regarding repeating her right SI injection. Risk and benefits were discussed with the patient. She would like to proceed forward with this injection. I have also counseled the patient regarding taking her diclofenac twice a day. Patient states she had previously only been taking it once at night. We will follow-up with reevaluation of her symptoms at her next clinic visit. I will also order the patient compounding cream at today's visit. We will schedule the patient today for a right SI injection. Patient has been instructed to contact the clinic with any concerns before the next appointment. Dr. Pettit has reviewed this note and agrees with this plan of care. This note was dictated using voice recognition software and make contain errors or omissions. [facility] History I have reviewed the patient's past medical history: Yes Medical History: Reports:: Asthma, Hypertension, Internal Pacemaker Denies:: Cancer, Diabetes Mellitus Type 1, Diabetes Mellitus Type 2, MRSA, Seizures *Have you ever received a pneumonia vaccine?: No *Have you received a flu vaccine this season?: Yes Other Medical History: Reports: Arthritis. Denies: Blood Transfusion Reaction Other Surgeries: Yes: Colonoscopy, (1989, ), Dilation and Curettage, Pacemaker, Tubal Ligation, Other Amputation: No Fractures: Yes (right elbow) - *Social History Smoking Status: Current every day smoker Tobacco Type: cigarettes # Packs/Day (cigarettes): 1 Alcohol Intake: never Substance Use Typ
== END ==
PROVIDERS: PCP Nurse Practitioner Family; Visit Provider Nurse Practitioner Family
DX: M46.1 Sacroiliitis, not elsewhere classified (principal); M70.61 Trochanteric bursitis, right hip
CPT/HCPCS: 99212; G0463

== ENCOUNTER 2021-12-16 07:55 | Day surgery (SDC) | payer OTHER, SELFPAY ==
[2021-12-16 08:04] VITALS: BP 107/69; BP 114/70; PULSE 77; PULSE 79; TEMP 36.7; O2SAT 96; O2SAT 97; BMI 35.2
[2021-12-16 08:30] VITALS: BP 119/69; PULSE 81; RESP 18; O2SAT 98
[2021-12-16 08:31] VITALS: BP 119/69; PULSE 81; RESP 18; O2SAT 100
--- NOTE | 2021-12-16 08:48 | EXP.PAIN.PRO ---
Procedure Date: 12/16/21 Time: 08:48 Anesthesiologist:: Yamil Sarmiento CRNA Complications:: None Pre-procedure Diagnosis:: Right sacroiliitis Post-procedure Diagnosis:: Same Indications for Procedure:: This patient is a very pleasant 51-year-old female who came to our clinic today for a third right sacroiliac joint injection. Patient states significant improvement after her first 1. Minimal to no improvement after second. However, she does report 1 to 2 hours of relief after the second injection during the duration of numbing medicine. I explained to her in detail today regarding the significance of reporting at her follow-up visit how the pain was during the duration of the numbing medicine. The next 2 to 3 hours. Also, any therapeutic relief from the steroid. She understands. Procedure Details:: Procedure: Right sacroliliac joint injection under fluoroscopy Informed consent was obtained and the risk and benefits of the procedure were explained to the patient.~ The patient was taken to the procedure room and noninvasive monitors were placed including noninvasive blood pressure cuff and pulse oximeter.~ The patient was placed prone on the procedure table.~ The~ right hip was cleansed using Betadine as a cleansing solution.~ C-arm fluorosocpy was used to view the right SI joint.~ The skin and subcutaneous tissues were anesthetized using Lidocaine 1.5% and a 25-gauge needle.~ After this, a 22-gauge spinal needle was inserted under fluoroscopic guidance into the inferior aspect of the right SI joint.~ Omnipaque dye was injected and a good spread was seen throughout the joint.~ After this, approximately 5 mL of bupivacaine 0.25% and Depo-Medrol 40 mg was incrementally injected into the sacroiliac joint.~ The patient tolerated the procedure well with no complications.~ The patient was observed in the Pain Clinic, then discharged home neurologically intact.~ Plan and Disposition:: Patient was discharged 10 minutes post procedure. She reports minimal to no pain in her right posterior hip. She will follow-up in the clinic for further evaluation
== END 2021-12-16 08:53 | disposition home or self-care (01) ==
PROVIDERS: PCP Nurse Practitioner Family; Visit Provider Nurse Anesthetist, Certified Registered
DX: M46.1 Sacroiliitis, not elsewhere classified (principal)
CPT/HCPCS: 27096; G0260; J1040

== ENCOUNTER → 2021-12-25 08:27 | Outpatient (POV) | payer OTHER, SELFPAY ==
[2021-12-25 08:59] VITALS: BP 136/86; PULSE 84; RESP 18; TEMP 37.3; O2SAT 98; BMI 35.2
--- NOTE | 2021-12-25 09:10 | EXP.PAIN.SOA ---
[facility] Pain Management SOAP Note Subjective:: Patient is a pleasant 51-year-old female who presents today for follow-up of right SI injection on 12/16/2021. We are currently treating the patient for sacroiliitis, right greater trochanteric bursitis. Patient states she had 90 to 95% improvement of her symptoms lasting about 2 days following this injection. We have done injective therapy in the past that has provided significant improvement of her symptoms. This is her third SI injection. Today she rates her pain a 3 out of 10 and states it is primarily along her right SI and radiates into her right leg. She describes this as a aching, throbbing sensation that is worse with increased activity. Patient continues to be unable to tolerate any prolonged activity such as sitting, standing, walking. Patient denies any new trauma or injury. She denies any change in the type or location of pain she experiences. She is currently managed with gabapentin 100 mg 3 times a day by Dr. Poe. She denies any side effects from this medication. She states these medications are adequately helping manage her pain. Patient is also prescribed diclofenac 75 mg twice a day and compounding cream. Her Agapito is [id number]. It has been reviewed and appropriate. Review of Systems: General: No recent weight changes, no fever, no sleep disturbances Respiratory: No cough, no shortness of air, no recurring pulmonary infections Cardiovascular/peripheral vascular: No chest pain, no palpitations, no edema, no shortness of breath Gastrointestinal: No new onset incontinence, normal bowel movements reported Genitourinary: No new onset incontinence Musculoskeletal: [Low back pain, right leg pain] Psychiatric: [Normal mood/affect] Neurological: [Denies weakness in extremities], [denies balance issues] Objective:: Physical Exam: General: Alert and oriented x3, no acute distress, pleasant and cooperative Lungs: Respirations even and unlabored, symmetrical chest expansion Eyes: PERRL Musculoskeletal: Flexion and extension of lumbar [spine] somewhat guarded secondary to pain, [antalgic gait noted]. Extreme point tenderness along right SI and positive right Parker's, Alexis's, Gaenslen's, compression and distraction exam Neurological: Speech clear, no gross sensory deficit Assessment:: Sacroiliitis, greater trochanteric bursitis Plan:: Patient continues to have significant pain along her low back on the right side that radiates into her right leg. Patient did have extreme point tenderness along her right SI and positive right Parker's, Alexis's, Gaenslen's, compression and distraction exam at today's visit. Patient has shown to have significant improvement with her SI injections however they do not provide long-term relief. I have discussed with the patient regarding proceeding forward with a right SI RFA. Risk and benefits were discussed with the patient. She would like to proceed forward with this procedure. I have also given the patient educational material for the SI stabilization procedure at today's visit. We will schedule the patient for a right SI RFA. Patient has been instructed to contact the clinic with any concerns before the next appointment. Dr. Pettit has reviewed this note and agrees with this plan of care. This note was dictated using voice recognition software and make contain errors or omissions. [facility] Social History Smoking Status: Current every day smoker tobacco type: cigarettes packs per day: 1 alcohol intake: never substance use type: other current occupational status: employed Travel in the last 8 weeks: None household members: other housing: house current occupation: [employer] current occupational exposures/hazards: Yes caffeine: Yes
== END ==
PROVIDERS: PCP Nurse Practitioner Family; Visit Provider Nurse Practitioner Family
DX: M46.1 Sacroiliitis, not elsewhere classified (principal); M70.61 Trochanteric bursitis, right hip; Z72.0 Tobacco use
CPT/HCPCS: 99212; G0463

== ENCOUNTER 2022-01-13 08:03 | Day surgery (SDC) | payer OTHER, SELFPAY ==
[2022-01-13 08:11] VITALS: BP 141/77; PULSE 81; RESP 18; TEMP 36.7; O2SAT 100; BMI 36.1
[2022-01-13 08:38] VITALS: BP 121/69; BP 125/78; PULSE 66; PULSE 74; RESP 18; O2SAT 98; O2SAT 99
[2022-01-13 08:55] VITALS: BP 151/86; PULSE 83; RESP 18; O2SAT 100
--- NOTE | 2022-01-13 09:57 | EXP.PAIN.PRO ---
Procedure Date: 01/13/22 Time: 08:30 Anesthesiologist:: Yamil Sarmiento CRNA Complications:: None Pre-procedure Diagnosis:: Chronic right sacroiliitis Post-procedure Diagnosis:: Same Indications for Procedure:: Very pleasant 51-year-old female that comes our clinic today for right SI joint radiofrequency ablation. Patient has had significant improvement with previous diagnostic right sacroiliac blocks. She rates her pain today 7/10. Procedure Details:: Details of the procedure were explained to the patient. The patient was taken the procedure room placed in the prone position. The area over the right posterior hip and SI joint was cleaned using chlorhexidine as a cleansing solution. Using fluoroscopy guidance markers were placed over 3 separate areas in the lower half of the right SI joint. The skin and subcutaneous tissue was anesthetized using 1% lidocaine and 25-gauge needle. At this time and fluoroscopy guidance 3 separate radiofrequency ablation needles were placed 1 cm medial to the SI joint covering the lower half of the SI joint. After negative motor and sensory stimulation each needle was injected with 2 cc of 1% lidocaine and 10 mg of Depo-Medrol. Ablation probes were inserted. At this time the radiofrequency ablation began at 80 ?C for 3 minutes. After this time the needles were removed. Band-Aid applied. Patient tolerated procedure without difficulty. There were no complications. Plan and Disposition:: Patient was discharged without incident.
== END 2022-01-13 08:55 | disposition home or self-care (01) ==
LOC: SC.PAINP 08:04
PROVIDERS: PCP Nurse Practitioner Family; Visit Provider Nurse Anesthetist, Certified Registered
DX: M46.1 Sacroiliitis, not elsewhere classified (principal)
CPT/HCPCS: 64625; J1040

== ENCOUNTER → 2022-01-29 08:20 | Outpatient (POV) | payer OTHER, SELFPAY ==
[2022-01-29 08:37] VITALS: BP 131/63; PULSE 76; RESP 18; TEMP 36.7; O2SAT 98; BMI 36.1
--- NOTE | 2022-01-29 09:16 | A.OFFVIS_ITS ---
[facility] Pain Management SOAP Note Subjective:: Patient is a pleasant 52-year-old female who presents today for follow-up after a therapeutic right-sided SI joint RFA on 01/13/2022. Patient is current being treated for right-sided sacroiliitis. After this procedure, patient had significant relief of 80 to 90% and rates her pain today as 1 out of 10. She states that she has been able to increase her activity since the procedure. She previously had SI joint injections that provided significant but temporary relief. Denies any issues after this procedure. She still does have some pain from time to time but this is dependent on how much activity she had that day. Overall, she is doing good and has no other issues today. Patient does work as a medical attendant at another clinic. She is on her feet most of the day. The procedure has significantly helped her with this. She is also prescribed diclofenac 75mg BID and tizanidine 4mg TID. She is needing refills on these today. She says that she takes one diclofenac and one tizanidine at night before bed. Stable on these meds. Review of Systems: General: No recent weight changes, no fever, no sleep disturbances Respiratory: No cough, no shortness of air, no recurring pulmonary infections Cardiovascular/peripheral vascular: No chest pain, no palpitations, no edema, no shortness of breath Gastrointestinal: No new onset incontinence, normal bowel movements reported Genitourinary: No new onset incontinence Musculoskeletal: Improving hip pain Psychiatric: [Normal mood/affect] Neurological: [Denies weakness in extremities], [denies balance issues] Objective:: Physical Exam: General: Alert and oriented x3, no acute distress, pleasant and cooperative Lungs: Respirations even and unlabored, symmetrical chest expansion Eyes: PERRL Musculoskeletal: Increased range of motion of the right hip, negative SI exam Neurological: Speech clear, no gross sensory deficit Assessment:: Right-sided sacroiliitis Plan:: Patient is doing well after her therapeutic right SI RFA. We will follow-up with this patient in 4 months. We will continue the patient's diclofenac 75 mg twice a day and tizanidine 4 mg twice a day and provided patient with 3 months worth of refill. Patient to call the clinic if she is needing refills on these medications before her appt. Patient has been instructed to contact the clinic with any concerns before the next appointment. Dr. Pettit has reviewed this note and agrees with this plan of care. This note was dictated using voice recognition software and make contain errors or omissions. PFSH PFSH Medical History (Updated 01/13/22 @ 08:13 by Anum Gaytan, PANKAJ) Hypertension No significant past medical history Surgical History (Updated 01/13/22 @ 08:14 by Anum Gaytan RN) H/O dilation and curettage History of section Family History (Updated 01/13/22 @ 08:14 by Anum Gaytan RN) Other Family history of diabetes mellitus type II Family history of hypertension Family history of myocardial infarction Social History (Updated 01/13/22 @ 08:15 by Anum Gaytan RN) Smoking Status: Current every day smoker tobacco type: cigarettes packs per day: 1 alcohol intake: never substance use type: other current occupational status: employed Travel in the last 8 weeks: None household members: other housing: house current occupation: [employer] current occupational exposures/hazards: Yes caffeine: Yes
== END | disposition home or self-care (01) ==
PROVIDERS: Visit Provider Student in an Organized Health Care Education/Training Program
DX: M46.1 Sacroiliitis, not elsewhere classified (principal); Z72.0 Tobacco use; Z79.899 Other long term (current) drug therapy
CPT/HCPCS: 99212; G0463

== ENCOUNTER → 2022-03-19 08:27 | Outpatient (POV) | payer OTHER, SELFPAY ==
[2022-03-19 08:38] VITALS: BP 143/77; PULSE 77; RESP 18; O2SAT 99; BMI 36.1
--- NOTE | 2022-03-19 09:08 | EXP.PAIN.SOA ---
[facility] Pain Management SOAP Note Subjective:: Patient is a pleasant 52-year-old female who presents today for follow-up. We are currently treating the patient for sacroiliitis, greater trochanteric bursitis, low back pain. Today the patient rates her pain a 3 out of 10. She states the pain is more in her right hip and states it does radiate down into her upper thigh. Patient states that it is most noticeable by the end of the day where she has been on her feet all day. Patient denies any trouble on her left side. Patient has tried heat and ice and states that heat does provide temporary relief. Patient does also use [id number] Tylenol with some improvement. Patient is currently managed with diclofenac 75 mg twice daily and tizanidine 4 mg 3 times daily however she states she only takes this at night due to it completely knocking her out. At this time the patient states she does not need any additional refills. She is prescribed gabapentin 100 mg 3 times a day from her primary care. Patient denies any side effects from this medication. She also was given compounding cream that she states does help her back pain. Patient has had a right-sided SI joint RFA on 01/13/2022 and she states this has continued to do well. Her Agapito is [id number]. It has been reviewed and appropriate. Review of Systems: General: No recent weight changes, no fever, no sleep disturbances Respiratory: No cough, no shortness of air, no recurring pulmonary infections Cardiovascular/peripheral vascular: No chest pain, no palpitations, no edema, no shortness of breath Gastrointestinal: No new onset incontinence, normal bowel movements reported Genitourinary: No new onset incontinence Musculoskeletal: Right hip pain Psychiatric: [Normal mood/affect] Neurological: [Denies weakness in extremities], [denies balance issues] Objective:: Physical Exam: General: Alert and oriented x3, no acute distress, pleasant and cooperative Lungs: Respirations even and unlabored, symmetrical chest expansion Eyes: PERRL Musculoskeletal: Flexion and extension of lumbar [spine] somewhat guarded secondary to pain, [antalgic gait noted] extreme point tenderness along right greater trochanteric bursa Neurological: Speech clear, no gross sensory deficit Assessment:: Sacroiliitis, greater trochanteric bursitis, low back pain, right hip pain Plan:: Patient is experiencing significant pain along her right hip. Patient did have limited range of motion of her lumbar spine and extreme point tenderness along her right greater trochanteric bursa during today's visit. I have discussed with the patient that she may benefit from a diagnostic intra-articular right hip injection as well as a right bursa injection. Risk and benefits were discussed with the patient. She would like to proceed forward with this plan of care. We will schedule the patient for a right greater trochanteric bursa injection and right intra-articular hip injection. Patient has been instructed to contact the clinic with any concerns before the next appointment. Dr. Pettit has reviewed this note and agrees with this plan of care. This note was dictated using voice recognition software and make contain errors or omissions. [facility] Disclaimer: The information contained in this section may have been updated after the patient was seen, as this information can be updated by other users. Medical History (Updated 01/13/22 @ 08:13 by Anum Gaytan RN) Hypertension No significant past medical history Surgical History (Updated 01/13/22 @ 08:14 by Anum Gaytan RN) H/O dilation and curettage History of section Family History (Updated 01/13/22 @ 08:14 by Anum Gaytan RN) Other Family history of diabetes mellitus type II Family history of hypertension Family history of myocardial infarction Social History (Updated 01/13/22 @ 08:15 by Anum Gaytan RN) Smoking Status: Current every day sm
== END ==
PROVIDERS: PCP Nurse Practitioner Family; Visit Provider Nurse Practitioner Family
DX: M46.1 Sacroiliitis, not elsewhere classified (principal); M70.60 Trochanteric bursitis, unspecified hip; M54.50 Low back pain, unspecified; M25.551 Pain in right hip; Z72.0 Tobacco use; Z79.899 Other long term (current) drug therapy
CPT/HCPCS: 99212; G0463

== ENCOUNTER → 2022-03-24 08:19 | Day surgery (SDC) | payer OTHER, SELFPAY ==
[2022-03-24 08:31] VITALS: BP 110/56; PULSE 94; RESP 18; TEMP 37; O2SAT 99; BMI 36.1
[2022-03-24 09:01] VITALS: BP 137/65; PULSE 83; RESP 18; O2SAT 97
[2022-03-24 09:02] VITALS: BP 137/65; PULSE 83; RESP 18; O2SAT 97
--- NOTE | 2022-03-24 12:38 | P.PCN_ITS ---
Procedure Date: 03/24/22 Time: 09:00 Anesthesiologist:: Yamil Sarmiento CRNA Complications:: None Pre-procedure Diagnosis:: Right trochanteric bursitis. Right hip pain chronic. Post-procedure Diagnosis:: Same. Indications for Procedure:: Patient is a pleasant 52-year-old female comes our clinic today for right trochanteric bursa injection as well as right intra-articular hip injection. Patient has pain in the right groin that wraps around the lateral border into the right buttock. Patient has had sacroiliac joint injections as well as sacroiliac joint ablation. She describes the pain as constant, sharp, stabbing at times. She rates pain 7/10. Procedure Details:: Procedure: Right trochanteric bursa injection under fluoroscopy We then moved to the right trochanteric bursa.~ C-arm fluoroscopy was used to view the left greater trochanter.~ The skin and subcutaneous tissues overlying the right greater trochanter were anesthetized using lidocaine, 1.5% and a 25- gauge needle.~ After this, a 22-gauge spinal needle was inserted and advanced until it contacted the right greater trochanter.~ Dye was injected and good spread was seen throughout the right trochanteric bursa. After this, approximately 5 mL of bupivacaine, 0.25% and Depo-Medrol, 40 mg was incrementally injected into the right right trochanteric bursa.~ The patient tolerated the procedure well with no complications. Details of the procedure were explained to the patient. The patient was taken to procedure room placed in the supine position. The area over the right hip was cleaned using chlorhexidine as a cleansing solution. Using fluoroscopy guidance a 3 and half inch 22-gauge spinal needle was used to access the right hip joint without difficulty. After negative aspiration 3 cc of 1% lidocaine +3 cc of 0.25% Marcaine and 40 mg of Depo-Medrol was injected. Needle was withdrawn. Band-Aid applied. Patient tolerated procedure without difficulty. There are no complications. Plan and Disposition:: Patient was discharged without incident.
== END | disposition home or self-care (01) ==
PROVIDERS: PCP Nurse Practitioner Family; Visit Provider Nurse Anesthetist, Certified Registered
DX: M70.61 Trochanteric bursitis, right hip (principal); G89.29 Other chronic pain; M46.1 Sacroiliitis, not elsewhere classified; M54.50 Low back pain, unspecified
CPT/HCPCS: 20610; 77002; J1030

== ENCOUNTER → 2022-04-14 08:43 | Outpatient (POV) | payer OTHER, SELFPAY ==
--- NOTE | 2022-04-14 08:57 | EXP.PAIN.SOA ---
[facility] Pain Management SOAP Note Subjective:: Patient is a pleasant 52-year-old female who presents today for follow-up of right bursa and right intra-articular injection on 03/24/2022. We are currently treating the patient for sacroiliitis, greater trochanteric bursitis, left hip osteoarthritis, low back pain. Today the patient states that she has had at least 80% improvement following these injections and feels like they are still continuing to provide relief. Today the patient rates her pain a 0 out of 10. Patient states she has been able to increase her range of motion and activity level with decreased pain along the right side. Patient is currently managed with diclofenac 75 mg twice a day and tizanidine 4 mg 3 times a day however the patient states she does continue to only take the tizanidine at night due to it making her very sleepy. Patient is prescribed gabapentin 100 mg 3 times a day from her primary care doctor. Patient denies any side effects from this medication. She is also managed with compounding cream that she states does provide some additional relief. Her Agapito is [id number]. Its been reviewed and appropriate. Review of Systems: General: No recent weight changes, no fever, no sleep disturbances Respiratory: No cough, no shortness of air, no recurring pulmonary infections Cardiovascular/peripheral vascular: No chest pain, no palpitations, no edema, no shortness of breath Gastrointestinal: No new onset incontinence, normal bowel movements reported Genitourinary: No new onset incontinence Musculoskeletal: Right hip pain Psychiatric: [Normal mood/affect] Neurological: [Denies weakness in extremities], [denies balance issues] Objective:: Physical Exam: General: Alert and oriented x3, no acute distress, pleasant and cooperative Lungs: Respirations even and unlabored, symmetrical chest expansion Eyes: PERRL Musculoskeletal: Flexion and extension of lumbar [spine] somewhat guarded secondary to pain, [antalgic gait noted] Neurological: Speech clear, no gross sensory deficit Assessment:: Low back pain, sacroiliitis, greater trochanteric bursitis, left hip osteoarthritis Plan:: Patient has had significant improvement of her pain symptoms following a right bursa and right hip intra-articular injection and does not require any additional injective therapy at this time. Patient will return to clinic in May for reevaluation of symptoms and follow-up. Patient has been instructed to contact the clinic with any concerns before the next appointment. Dr. Pettit has reviewed this note and agrees with this plan of care. This note was dictated using voice recognition software and make contain errors or omissions. [facility] Disclaimer: The information contained in this section may have been updated after the patient was seen, as this information can be updated by other users. Medical History Hypertension No significant past medical history Surgical History H/O dilation and curettage History of section Family History Other Family history of diabetes mellitus type II Family history of hypertension Family history of myocardial infarction Social History Smoking Status: Current every day smoker tobacco type: cigarettes packs per day: 1 alcohol intake: never substance use type: other current occupational status: employed Travel in the last 8 weeks: None household members: other housing: house current occupation: [employer] current occupational exposures/hazards: Yes caffeine: Yes
[2022-04-14 09:06] VITALS: BP 125/84; PULSE 82; RESP 18; O2SAT 97; BMI 36.1
== END ==
PROVIDERS: PCP Nurse Practitioner Family; Visit Provider Nurse Practitioner Family
DX: M46.1 Sacroiliitis, not elsewhere classified (principal); M70.60 Trochanteric bursitis, unspecified hip; M16.12 Unilateral primary osteoarthritis, left hip; M54.50 Low back pain, unspecified
CPT/HCPCS: 99212; G0463

== ENCOUNTER → 2022-05-25 08:28 | Outpatient (POV) | payer OTHER, SELFPAY ==
[2022-05-25 08:41] VITALS: BP 128/73; PULSE 93; RESP 18; O2SAT 98; BMI 37.5
--- NOTE | 2022-05-25 08:47 | EXP.PAIN.SOA ---
[facility] Pain Management SOAP Note Subjective:: Patient is a pleasant 52-year-old female who presents today for follow-up. We are currently treating the patient for sacroiliitis, greater trochanteric bursitis, left hip osteoarthritis, low back pain. Today she rates her pain a 0 out of 10. Patient denies any new trauma or injury. Patient denies any change to the location or type of pain she experiences. Patient states she will occasionally have flareups of her pain but it is more so when she is done a lot of walking or additional activity. Patient states that she is able to rest and get significant relief. Patient has had injections in the past that did provide significant improvement including a right bursa and right intra-articular hip injection. Patient is currently managed with diclofenac 75 mg twice a day, tizanidine 4 mg 3 times a day and gabapentin 100 mg 3 times a day from her primary care doctor. Patient states she does not need refills at this time however she is interested in our office taking over her gabapentin medication due to her changing providers. Patient is also prescribed compounding cream that provides additional improvement of her symptoms. Her Agapito is [id number]. Its been reviewed and appropriate. Review of Systems: General: No recent weight changes, no fever, no sleep disturbances Respiratory: No cough, no shortness of air, no recurring pulmonary infections Cardiovascular/peripheral vascular: No chest pain, no palpitations, no edema, no shortness of breath Gastrointestinal: No new onset incontinence, normal bowel movements reported Genitourinary: No new onset incontinence Musculoskeletal: Low back pain, right hip pain Psychiatric: [Normal mood/affect] Neurological: [Denies weakness in extremities], [denies balance issues] Objective:: Physical Exam: General: Alert and oriented x3, no acute distress, pleasant and cooperative Lungs: Respirations even and unlabored, symmetrical chest expansion Eyes: PERRL Musculoskeletal: Flexion and extension of lumbar [spine] somewhat guarded secondary to pain, [antalgic gait noted] Neurological: Speech clear, no gross sensory deficit ORT score updated with low risk Assessment:: Sacroiliitis, greater trochanteric bursitis, left hip osteoarthritis, low back pain Plan:: Patient continues to have significant relief following a right hip and right bursa injection in March. At this time she does not require any additional injective therapy or medication refills. We will take over her gabapentin 100 mg 3 times daily prescription and send in a 2 month supply of this medication. Patient will return to clinic in 3 months for reevaluation of symptoms, medication refill and follow-up. Patient has been instructed to contact the clinic with any concerns before the next appointment. Dr. Pettit has reviewed this note and agrees with this plan of care. This note was dictated using voice recognition software and make contain errors or omissions. [facility] Disclaimer: The information contained in this section may have been updated after the patient was seen, as this information can be updated by other users. Medical History (Updated 05/13/22 @ 16:02 by Livia Dorantes APRN) Allergic rhinitis Calculus of kidney Hypertension Kidney stone on right side No significant past medical history Pelvic pressure in female Surgical History H/O dilation and curettage History of section Family History Other Family history of diabetes mellitus type II Family history of hypertension Family history of myocardial infarction Social History Smoking Status: Current every day smoker tobacco type: cigarettes packs per day: 1 alcohol intake: never substance use type: other current occupational status: employed [employer]
== END | disposition home or self-care (01) ==
PROVIDERS: PCP Nurse Practitioner Family; Visit Provider Nurse Practitioner Family
DX: M46.1 Sacroiliitis, not elsewhere classified (principal); M70.60 Trochanteric bursitis, unspecified hip; M16.12 Unilateral primary osteoarthritis, left hip; M54.50 Low back pain, unspecified
CPT/HCPCS: 99212; G0463

== ENCOUNTER → 2022-06-25 07:56 | Outpatient (CLI) | payer OTHER, SELFPAY ==
--- NOTE | 2022-06-25 07:56 | CT_ITS ---
FINAL REPORT TECHNIQUE: Axial CT images of the chest were obtained without contrast. Low-dose protocol was utilized. This study was performed with techniques to keep radiation doses as low as reasonably achievable (ALARA). Individualized dose reduction techniques using automated exposure control or adjustment of mA and/or kV according to the patient's size were employed. CLINICAL HISTORY: lung cancer screening. Smoker x yrs, 1/2 ppd, 0 chest complaints. Hx lung cancer to uncle. COMPARISON: 12/07/2017 FINDINGS: CT CHEST WITHOUT, LOW DOSE SCREENING CT Di Vol: 2.90 mGy DLP: 93.51 mGy*cm There is no axillary, mediastinal, or hilar adenopathy. The heart size is normal. There is moderate to severe left coronary artery calcification. There is no pleural or pericardial effusion. The lung windows show several calcified granulomas. No other mass or nodule identified. Limited images of the upper abdomen demonstrate mild fatty infiltration of the liver. IMPRESSION: LR Category 1S: 12 month follow-up low-dose chest CT is recommended. Modifier S: Left coronary artery calcification. Reviewed, Interpreted and Dictated by Antonio Lion III, MD Transcribed by Xiomara Burgess Authenticated and [facility]
== END ==
PROVIDERS: PCP Nurse Practitioner Family; Visit Provider Nurse Practitioner Family
DX: Z87.891 Personal history of nicotine dependence (principal); Z12.2 Encounter for screening for malignant neoplasm of respiratory organs
CPT/HCPCS: 71271

== ENCOUNTER → 2022-07-03 15:10 | Outpatient (CLI) | payer OTHER, SELFPAY ==
--- NOTE | 2022-07-03 15:13 | CA_ITS ---
FINAL REPORT TECHNIQUE: Color Doppler, duplex Doppler and mena scale sonography of the bilateral neck arterial vasculature was performed. Velocities were measured in the carotid arteries. Stenosis evaluation based on the validated velocity criteria. CLINICAL HISTORY: left coronary artery calcification seen in CT scan, smoker, HTN, DM, family history of HD. FINDINGS: The peak systolic velocity of the right common carotid artery is 102 cm/s. The peak systolic velocity of the right internal carotid artery is 109 cm/s and end diastolic velocity 45 cm/s. The ICA/CCA ratio is 1.2. A small amount of plaque is present. The right external carotid artery is patent. The right vertebral artery is patent with antegrade flow. The peak systolic velocity of the left common carotid artery is 119 cm/s. The peak systolic velocity of the left internal carotid artery is 127 cm/s and end diastolic velocity 53 cm/s. The ICA/CCA ratio is 1.2. A small amount of plaque is present. The left external carotid artery is patent.The left vertebral artery is patent with antegrade flow. IMPRESSION: Less than 50% bilateral carotid stenoses. Bilateral patent vertebral arteries with antegrade flow. If indicated, CTA or MRA could further evaluate. Reviewed, Interpreted and Dictated by Antonio Lion III, MD Transcribed by Cleopatra Mejia Authenticated and [facility]
== END ==
LOC: RT 15:10
PROVIDERS: PCP Nurse Practitioner Family; Visit Provider Nurse Practitioner Family
DX: I65.23 Occlusion and stenosis of bilateral carotid arteries (principal)
CPT/HCPCS: 93880

== ENCOUNTER → 2022-07-21 09:03 | Outpatient (CLI) | payer OTHER, SELFPAY ==
[2022-07-21 10:08] LABS: Hemoglobin A1C 5.5 % (4.0-6.0)
== END ==
PROVIDERS: PCP Nurse Practitioner Family; Visit Provider Nurse Practitioner Family
DX: E11.9 Type 2 diabetes mellitus without complications (principal); Z79.84 Long term (current) use of oral hypoglycemic drugs
CPT/HCPCS: 36415; 83036

== ENCOUNTER → 2022-08-24 08:30 | Outpatient (POV) | payer OTHER, SELFPAY ==
--- NOTE | 2022-08-24 08:39 | EXP.PAIN.SOA ---
[facility] Pain Management SOAP Note Subjective:: Patient is a pleasant 52-year-old female who presents today for follow-up. We are currently treating the patient for sacroiliitis, greater trochanteric bursitis, bilateral hip osteoarthritis, low back pain. Today she rates her pain a 0 out of 10. Patient denies any new trauma or injury. Patient denies any change to location or type of pain she experiences. Patient is currently managed with compounding cream, diclofenac 75 mg twice a day and tizanidine 4 mg 3 times a day however she only takes the tizanidine at bedtime due to significant drowsiness. Patient is prescribed gabapentin 100 mg from her primary care doctor. Patient previously had a right bursa and right intra-articular injection back in March and it is still providing significant relief. Her Agapito is [id number]. Its been reviewed and appropriate. Review of Systems: General: No recent weight changes, no fever, no sleep disturbances Respiratory: No cough, no shortness of air, no recurring pulmonary infections Cardiovascular/peripheral vascular: No chest pain, no palpitations, no edema, no shortness of breath Gastrointestinal: No new onset incontinence, normal bowel movements reported Genitourinary: No new onset incontinence Musculoskeletal: Low back pain Psychiatric: [Normal mood/affect] Neurological: [Denies weakness in extremities], [denies balance issues] Objective:: Physical Exam: General: Alert and oriented x3, no acute distress, pleasant and cooperative Lungs: Respirations even and unlabored, symmetrical chest expansion Eyes: PERRL Musculoskeletal: Flexion and extension of lumbar [spine] somewhat guarded secondary to pain, [antalgic gait noted] Neurological: Speech clear, no gross sensory deficit Assessment:: Sacroiliitis, greater trochanteric bursitis, bilateral hip osteoarthritis, low back pain Plan:: Patient is continuing to do well and does not require any additional injective therapy at this time. I will refill her diclofenac 75 mg twice a day and tizanidine 4 mg at bedtime and provide 6 months of this medication. Patient will return to clinic in 6 months for reevaluation of symptoms and plan of care. Patient has been instructed to contact the clinic with any concerns before the next appointment. Dr. Pettit has reviewed this note and agrees with this plan of care. This note was dictated using voice recognition software and make contain errors or omissions. [facility] Disclaimer: The information contained in this section may have been updated after the patient was seen, as this information can be updated by other users. Medical History (Updated 07/21/22 @ 09:08 by Livia Dorantes APRN) Acute sinusitis Allergic rhinitis BMI 37.0-37.9, adult Calculus of kidney Establishing care with new doctor, encounter for Hidradenitis suppurativa Hypertension Kidney stone on right side No significant past medical history Pelvic pressure in female Rectocele Surgical History H/O dilation and curettage History of section Family History Other Family history of diabetes mellitus type II Family history of hypertension Family history of myocardial infarction Social History Smoking Status: Current every day smoker tobacco type: cigarettes packs per day: 1 alcohol intake: never substance use type: other current occupational status: employed Travel in the last 8 weeks: None household members: other housing: house current occupation: [employer] current occupational exposures/hazards: Yes caffeine: Yes
[2022-08-24 08:54] VITALS: BP 123/78; PULSE 74; RESP 18; O2SAT 98; BMI 35.3
== END | disposition home or self-care (01) ==
PROVIDERS: PCP Nurse Practitioner Family; Visit Provider Nurse Practitioner Family
DX: M46.1 Sacroiliitis, not elsewhere classified (principal); M70.60 Trochanteric bursitis, unspecified hip; M16.0 Bilateral primary osteoarthritis of hip; M54.50 Low back pain, unspecified
CPT/HCPCS: 99212; G0463

== ENCOUNTER → 2022-09-04 08:12 | Outpatient (CLI) | payer OTHER, SELFPAY ==
[2022-09-04 10:03] LABS: Chol/HDL Ratio 2.9 (1-3.5); Cholesterol 143 mg/dl (140-200); HDL Cholesterol 50 mg/dl (40-60); Triglycerides 107 mg/dl (30-150); VLDL Cholesterol 21 mg/dL (0-40)
[2022-09-04 10:16] LABS: Direct LDL Cholesterol 83.18 mg/dL (100-129)
== END ==
PROVIDERS: PCP Nurse Practitioner Family; Visit Provider Nurse Practitioner Family
DX: Z13.220 Encounter for screening for lipoid disorders (principal); Z79.899 Other long term (current) drug therapy
CPT/HCPCS: 36415; 80061

== ENCOUNTER → 2022-09-21 06:23 | Outpatient (CLI) | payer OTHER, SELFPAY ==
--- NOTE | 2022-09-21 | CA_ITS ---
APPROVED REPORT Exam: Pharmacologic Technologist: Sherine Uribe Ht: 4 ft 11 in Wt: 182 lbs BSA: 1.77 m2 HR: 64 bpm BP: 124/69 mmHg Rhythm: NSR Indications: Dyspnea, chest pain Medical History Medications: Metformin,,,,, Gabapentin,,,,, Montelukast,,,,, Diclofenac,,,,, Telmisartan,,,,, Tizanidine,,,,, Levocetirizine,,,,, AZelastine,,,,, WELbutrin,,,,, Ozempic,,,,, Stress Test Details Test: LEXISCAN HR Resting HR: 62 bpm Max Heart Rate (APMHR): 166 bpm Max HR Achieved: 116 bpm Target HR (85% APMHR): 141 bpm % of APMHR: 70 Recovery HR: 93 bpm BP Resting BP: 124.0/69.0 mmHg Max BP: 132.0/75.0 mmHg Recovery BP: 132.0/75.0 mmHg ECG Resting ECG: Sinus rhythm, non-specific T-wave changes Stress ECG: More prominent T-wave changes in the inferolateral leads Arrhythmia: VPC's (not recorded) Recovery Arrhythmia: None Clinical Exercise duration: 04:00 min Highest Stage Achieved: Exercise capacity: 1.0 METs Stress ECG Conclusion Symptoms: Dysnpea, chest pressure, nausea Arrhythmias/Ectopy: Occasional PVC ST-T Changes: T-wave changes in the inferolateral leads Conclusion: Non-diagnostic ECG due to baseline abnormalities, occasional PVCs were present at stress. Test Summary REST . . . . . . . Resting REST 07:04 . . 62 . 124/ 69 . . Stage 1 . . . . . . . Myoview Injected Stage 1 . . . . . . . Chest pain Stage 1 01:00 . . 108 . . . . Stage 2 01:00 . . 113 . 118/ 79 . . Stage 3 01:00 . . 106 . 114/ 81 . . Stage 4 01:00 . . 94 . 120/ 74 . Stop exercise at 04:00 RECOVERY 01:00 . . 89 . 127/ 73 . . RECOVERY 02:00 . . 86 . 127/ 73 . . RECOVERY 03:00 . . 95 . 111/ 81 . . RECOVERY 04:00 . . 91 . 132/ 75 . . RECOVERY 04:12 . . 79 . 132/ 75 . . Electronically signed by : Criss Fernandez, 09/21/2022 16:01:26
--- NOTE | 2022-09-21 06:28 | NM_ITS ---
APPROVED REPORT Exam: Nuclear Stress Test Indication: DYSRHYTHMIA, OBESITY, HTN, DM, TOB USE, FM HX. Patient Location: Outpatient Stress Tech: Sherine Uribe ND Tech:Elle PurvisANETA RT (R)(N)(M) Ht: 5 ft 0 in Wt: 177 lbs Bra Size: C HR: 64 bpm BP: 124/69 mmHg BSA: 1.77 m2 TID: 1.13 History: DYSRHYTHMIA, OBESITY, HTN, DM, TOB USE, FM HX. Procedure: Patient received 0.4 mg of intravenous Lexiscan, resting heart rate 64 bpm, resting blood pressure 124/69 mmHg, with Lexiscan maximum heart rate achieved was 114 bpm which is % of the maximum predicted heart rate and blood pressure was 118/79 mmHg. PT C/O CHEST PRESSURE WITH LEXISCAN Cardiac Stress and Resting SPECT Images: Cardiac Stress and Resting SPECT images were obtained using technetium 99m Myoview 30.6 mCi stress and 10.59 mCi at rest. Resting and stress imaging in both supine and prone positions demonstrate a small-sized, mild, partially reversible perfusion defect in the mid to distal anterior LV wall. Gated imaging demonstrates a normal global LV systolic function. There is mild hypokinesis in the distal anterior LV wall. LVEF is calculated at 60%. Conclusion: Small-sized, mild, partially reversible perfusion defect in the mid to distal anterior LV wall. Findings are suggestive of partially reversible ischemia. Gated imaging demonstrates a normal global LV systolic function. There is mild hypokinesis in the distal anterior LV wall. LVEF is calculated at 60%. Electronically signed by : Criss Fernandez, 09/21/2022 16:05:46
--- NOTE | 2022-09-21 09:32 | MM_ITS ---
PROCEDURE INFORMATION: Exam: MG Bilateral Screening 3D Mammography Exam date and time: 09/21/2022 9:30 AM Age: 52 years old Clinical indication: Screening. No family history of breast cancer. TECHNIQUE: Imaging protocol: Bilateral Screening tomosynthesis and 2D mammography including computer-aided detection (CAD) when performed. COMPARISON: 1. MG MM DIG MAMM BI DX W/CAD 09/19/2021 1:59 PM 2. MG MM DIG MAMM DX UNILAT LT CAD 04/04/2021 2:02 PM 3. MG MM DIG MAMM DX UNILAT LT CAD 09/19/2020 10:50 AM 4. MG MM DIG MAMM BI DX W/CAD 09/05/2020 1:00 PM FINDINGS: MAMMOGRAPHY: Breast composition: There are scattered areas of fibroglandular density. Mass: Two new oval 0.3 to 0.5 cm masses in the right upper outer quadrant, anterior and posterior 3rd and one 0.3 cm mass in the left upper inner quadrant posterior 3rd. Biopsy clip related to stable 0.5 cm oval mass in the left breast 12 o'clock middle 3rd. Architectural distortion: None. Calcifications: No suspicious calcifications. Asymmetric density: None. Skin thickening: None. Axillary adenopathy: None. IMPRESSION: Patient will be recalled for bilateral sonography for further evaluation of bilateral sub cm masses. ASSESSMENT: BI-RADS Category 0: Incomplete- Need Additional Imaging Evaluation and/or Prior Mammograms for Comparison
== END ==
PROVIDERS: PCP Nurse Practitioner Family; Visit Provider Nurse Practitioner Family
DX: I25.10 Atherosclerotic heart disease of native coronary artery without angina pectoris (principal); Z12.31 Encounter for screening mammogram for malignant neoplasm of breast
CPT/HCPCS: 77063; 77067; 78452; 93017; A9502; J2785

== ENCOUNTER → 2022-09-30 07:59 | Outpatient (CLI) | payer OTHER, SELFPAY ==
--- NOTE | 2022-09-30 07:59 | US_ITS ---
PROCEDURE INFORMATION: Exam: US Right Breast, Complete US Left Breast, Complete Exam date and time: 09/30/2022 8:20 AM Age: 52 years old Clinical indication: Patient recalled for further evaluation bilateral subcentimeter masses TECHNIQUE: Imaging protocol: Complete ultrasound of all four quadrants of the right breast and the retroareolar regions, including ultrasound of the axilla when performed. Complete ultrasound of all four quadrants of the left breast and the retroareolar regions, including ultrasound of the axilla when performed. COMPARISON: US FNA BREAST 09/19/2020 10:08 AM FINDINGS: Breast: Sonographic images of both breasts including the retroareolar regions, all 4 quadrants and the axilla do not demonstrate any solid masses. Minimal subcentimeter cystic change is present bilaterally corresponding to bilateral subcentimeter masses seen on screening mammography. No architectural distortion or acoustical shadowing. No skin thickening or axillary adenopathy. IMPRESSION: Masses on screening mammography correspond to underlying cystic change sonographically. There is no mammographic evidence of malignancy.Annual bilateral mammographic screening is recommended unless otherwise clinically indicated. ASSESSMENT: BI-RADS Category 2: Benign
== END ==
LOC: RAD 07:59
PROVIDERS: PCP Nurse Practitioner Family; Visit Provider Nurse Practitioner Family
DX: R92.8 Other abnormal and inconclusive findings on diagnostic imaging of breast (principal); N63.10 Unspecified lump in the right breast, unspecified quadrant; N63.20 Unspecified lump in the left breast, unspecified quadrant
CPT/HCPCS: 76641

== ENCOUNTER 2022-10-02 08:18 | Day surgery (SDC) | payer OTHER, SELFPAY ==
[2022-10-02] VITALS (12 sets, daily range): BP systolic 107–150; BP diastolic 72–93; PULSE 57–72; RESP 16–18; O2SAT 97–100; BMI 34.7
--- NOTE | 2022-10-02 07:10 | IR_ITS ---
APPROVED REPORT Patient Location: Outpatient Vault Worker: ANETA Rosario RT (R) PROCEDURES Left heart catheterization Left ventriculogram Selective coronary angiogram Drug-eluting stent deployment to the proximal mid LAD INDICATION High risk abnormal Myoview anterior ischemia, Coronary artery disease Informed consent was obtained prior to the procedure. COMPLICATIONS None Estimated Blood Loss: Less than 10 mls TECHNIQUE One percent lidocaine used to anesthetize the right anterior aspect of the wrist. The right radial artery was accessed via the Seldinger technique. A 6 Cymraes sheath was placed in the right radial artery. 150 mg magnesium sulfate, 800 mcg of nitroglycerin, 1mg Lidocaine and 5000 U Heparin were given through the arterial sheath. The papa catheter was also used to perform left heart catheterization, left ventriculogram and selective coronary angiogram. At the end of the diagnostic angiogram therapeutic heparin was administered giving a therapeutic ACT and the guide catheter was placed in the left main artery followed by Choice PT support wire being placed down the LAD. A guide liner was required for support. A 3.0 x 38 mm [place] frontier stent was deployed at 18 diamond reducing the hemodynamically severe stenosis to 0%. KWAME-3 flow was present before and after the procedure. Following this an additional 3.0 x 15 mm [place] frontier stent was then placed proximal to the for stent yet still overlapping and deployed at 20 diamond further reducing the stenosis to 0%. At the end of the procedure after achieving excellent angiograph results the apparatus was removed the sheath was removed and hemostasis was achieved and TR banding patient was transferred to the postop holding in stable condition ANGIOGRAPHIC RESULTS The left main artery Normal The left anterior descending artery Has proximal 50% stenosis followed by mid vessel concentric 70% stenosis. The circumflex artery Dominant normal The right coronary artery Nondominant yet still large with proximal concentric 40% stenosis The LIMON ventriculogram reveals Normal 65% The left ventricular end-diastolic pressure 15 mmHg IMPRESSION Hemodynamically severe disease involving the LAD Successful stenting of the proximal LAD severe disease reduced to 0% with 2 contiguous drug-eluting stents Jailed small less than 2 mm first diagonal artery which had KWAME I flow at the end the procedure and is anticipated to continue opening. Slow flow is likely due to jailing and spasm Normal ejection fraction Borderline LVEDP Persistent moderate stenosis in the mid right coronary artery PLAN 1. Dual antiplatelet therapy 2. Nitrates for jailed first diagonal artery. This vessel was anticipated to have normal flow following spasm resolution. Imdur 30 mg daily may be of benefit 3. LDL less than 55 to be achieved with high intensity statin 4. Avoidance of tobacco products 5. Risk factor modification 6. Cardiac rehabilitation Electronically signed by : Olu Delgado MD 10/02/2022 14:51:42
[2022-10-02 09:06] LABS: Basophils % 0.5 % (0.1-2.0); Eosinophils # 0.1 K/mm3 (0.0-0.4); Eosinophils % 1.2 % (0.1-12.0); Hematocrit 37.6 % (37.0-47.0); Hemoglobin 12.3 g/dL (12.2-16.2); Lymphocytes # 2.1 K/mm3 (0.7-4.5); Lymphocytes % 36.1 % (10-50); Mean Corpuscular HGB Conc 32.8 g/dL (31.8-35.4); Mean Corpuscular Hemoglobin 29.3 pg (27.0-31.2); Mean Corpuscular Volume 89.3 fl (81-99); Mean Platelet Volume 9.5 fl (7.4-10.4); Monocytes # 0.4 K/mm3 (0.1-1.0); Monocytes % 6.2 % (1.7-9.3); Neutrophils # 3.3 K/mm3 (1.8-7.8); Neutrophils % 55.9 % (37.0-80.0); Platelet Count 203 K/mm3 (142-424); Red Blood Count 4.21 M/mm3 (4.20-5.40); Red Cell Distribution Width 13.5 % (11.5-17.5); White Blood Count 5.9 K/mm3 (4.8-10.8)
[2022-10-02 09:21] LABS: Anion Gap 11.9 mEq/L (5-15); Blood Urea Nitrogen 11 mg/dl (7-17); Calcium 8.6 mg/dl (8.4-10.2); Carbon Dioxide 29 mmol/L (22.0-30.0); Chloride 106 mmol/L (98-107); Creatinine Clearance Estimated 75 mL/min (50-200); Estimated Glomerular Filt Rate 52 ml/min (>60); GFR (African American) 63 ML/MIN (>60); Glucose 86 mg/dl (74-100); INR 0.98 (0.9-1.1); Potassium 3.9 mmoL/L (3.5-5.1); Prothrombin Time 10.6 seconds (10.1-12.5); Sodium 143 mmol/L (136-145)
[2022-10-02 13:23] LABS: CATHL Activated Clotting Time > 400 SEC (74-125)
--- NOTE | 2022-10-02 15:50 | HMH.PHACL ---
[facility] Sterile Instrument Technician Discharge Med Admissions Officer: Hilary Ramos has received discharge medication counseling on the following medications: -ASPIRIN (ON PREVIOUSLY, NO QUESTIONS) -BRILINTA (BLOOD THINNER, TWICE DAILY, BLEED/BRUISE RISK, BLEED LOCATION AND APPEARANCE, BUMP HEAD = GO TO ER TO RULE OUT HEAD BLEED, SHORTNESS OF BREATH POSSIBLE). -ATORVASTATIN (ON PREVIOUSLY, NO QUESTIONS) -METOPROLOL SUCCINATE (ON PREVIOUSLY, NO QUESTIONS) -TELMISARTAN (ON PREVIOUSLY, NO QUESTIONS) -HOLD METFORMIN UNTIL 10/05 DUE TO CONTRAST DYE USE DURING HEART CATH PATIENT ASKED WHEN TO START THE BRILINTA, WAS ADVISED TO START IN THE MORNING.
== END 2022-10-02 16:00 | disposition home or self-care (01) ==
PROVIDERS: PCP Nurse Practitioner Family; Visit Provider Internal Medicine
DX: F17.210 Nicotine dependence, cigarettes, uncomplicated (principal); E11.9 Type 2 diabetes mellitus without complications; I10 Essential (primary) hypertension; I25.10 Atherosclerotic heart disease of native coronary artery without angina pectoris; I65.23 Occlusion and stenosis of bilateral carotid arteries; Z79.899 Other long term (current) drug therapy; Z79.84 Long term (current) use of oral hypoglycemic drugs; Z82.49 Family history of ischemic heart disease and other diseases of the circulatory system
CPT/HCPCS: 80048; 85025; 85347; 85610; 92928; 93458; 99152; 99153; C1725; C1769; C1874; C1876; C9600; J1644; J2405; Q9967

== ENCOUNTER → 2022-10-06 10:51 | Outpatient (CLI) | payer OTHER, SELFPAY | PROVIDERS: PCP Nurse Practitioner Family; Visit Provider Physician Assistant | DX: R06.00 Dyspnea, unspecified (principal); R07.9 Chest pain, unspecified; R01.1 Cardiac murmur, unspecified; I25.10 Atherosclerotic heart disease of native coronary artery without angina pectoris; I10 Essential (primary) hypertension; I65.29 Occlusion and stenosis of unspecified carotid artery; E11.9 Type 2 diabetes mellitus without complications; F17.210 Nicotine dependence, cigarettes, uncomplicated; R94.30 Abnormal result of cardiovascular function study, unspecified; Z79.84 Long term (current) use of oral hypoglycemic drugs; Z82.49 Family history of ischemic heart disease and other diseases of the circulatory system | CPT/HCPCS: 93306 ==

== ENCOUNTER → 2022-10-09 08:19 | Outpatient (CLI) | payer OTHER, SELFPAY ==
[2022-10-09 08:45] LABS: Chloride 104 mmol/L (98-107)
[2022-10-09 08:46] LABS: Potassium 4.4 mmoL/L (3.5-5.1); Sodium 139 mmol/L (136-145)
[2022-10-09 08:48] LABS: Alanine Aminotransferase 25 U/L (12-78); Alkaline Phosphatase 64 U/L (38-126); Anion Gap 12.4 mEq/L (5-15); Aspartate Amino Transferase 25 U/L (14-36); Bilirubin,Total 0.3 mg/dl (0.2-1.3); Blood Urea Nitrogen 11 mg/dl (7-17); Carbon Dioxide 27 mmol/L (22.0-30.0); Estimated Glomerular Filt Rate 47 ml/min (>60); GFR (African American) 57 ML/MIN (>60)
[2022-10-09 08:49] LABS: Albumin Level 3.9 g/dl (3.5-5.0); Albumin/Globulin Ratio 1.4 (1.1-1.8); Globulin 2.7 g/dL (1.3-3.2); Glucose 92 mg/dl (74-100); Total Protein,Serum 6.6 g/dl (6.3-8.2)
[2022-10-09 08:56] LABS: Basophils % 0.4 % (0.1-2.0); Eosinophils # 0.1 K/mm3 (0.0-0.4); Eosinophils % 1.2 % (0.1-12.0); Hematocrit 34.4 % (37.0-47.0); Hemoglobin 11.6 g/dL (12.2-16.2); Lymphocytes # 1.7 K/mm3 (0.7-4.5); Lymphocytes % 26.3 % (10-50); Mean Corpuscular HGB Conc 33.8 g/dL (31.8-35.4); Mean Corpuscular Hemoglobin 29.2 pg (27.0-31.2); Mean Corpuscular Volume 86.5 fl (81-99); Mean Platelet Volume 9.9 fl (7.4-10.4); Monocytes # 0.3 K/mm3 (0.1-1.0); Monocytes % 4.9 % (1.7-9.3); Neutrophils # 4.3 K/mm3 (1.8-7.8); Neutrophils % 67.2 % (37.0-80.0); Platelet Count 193 K/mm3 (142-424); Red Blood Count 3.98 M/mm3 (4.20-5.40); Red Cell Distribution Width 13.7 % (11.5-17.5); White Blood Count 6.5 K/mm3 (4.8-10.8)
== END ==
PROVIDERS: PCP Nurse Practitioner Family; Visit Provider Internal Medicine
DX: I25.10 Atherosclerotic heart disease of native coronary artery without angina pectoris (principal)
CPT/HCPCS: 36415; 80053; 85025

== ENCOUNTER → 2022-11-06 13:59 | Outpatient (CLI) | payer OTHER, SELFPAY ==
[2022-11-06 14:41] LABS: Chloride 104 mmol/L (98-107)
[2022-11-06 14:42] LABS: Potassium 4.6 mmoL/L (3.5-5.1); Sodium 139 mmol/L (136-145)
[2022-11-06 14:45] LABS: Anion Gap 11.6 mEq/L (5-15); Blood Urea Nitrogen 9 mg/dl (7-17); Calcium 9.1 mg/dl (8.4-10.2); Carbon Dioxide 28 mmol/L (22.0-30.0); Estimated Glomerular Filt Rate 47 ml/min (>60); GFR (African American) 57 ML/MIN (>60); Glucose 95 mg/dl (74-100)
[2022-11-06 14:54] LABS: NT Pro Brain Natriuretic Pep. 98.7 pg/mL (0-125)
== END ==
PROVIDERS: Physician Assistant; PCP Nurse Practitioner Family; Visit Provider Internal Medicine
DX: I25.10 Atherosclerotic heart disease of native coronary artery without angina pectoris (principal); I10 Essential (primary) hypertension; I65.29 Occlusion and stenosis of unspecified carotid artery; Z95.5 Presence of coronary angioplasty implant and graft
CPT/HCPCS: 36415; 80048; 83880

== ENCOUNTER 2022-11-16 11:26 | Outpatient (RCR) | payer OTHER, SELFPAY | END 2022-12-03 09:30 | disposition home or self-care (01) | LOC: PT 11:26 | PROVIDERS: Visit Provider Internal Medicine | DX: I25.10 Atherosclerotic heart disease of native coronary artery without angina pectoris (principal); Z95.5 Presence of coronary angioplasty implant and graft | CPT/HCPCS: 93798 ==

== ENCOUNTER → 2022-12-17 07:45 | Outpatient (CLI) | payer OTHER, SELFPAY ==
[2022-12-17 08:06] LABS: Basophils # 0.1 K/mm3 (0-0.2); Basophils % 0.9 % (0.1-2.0); Eosinophils # 0.2 K/mm3 (0.0-0.4); Eosinophils % 2.5 % (0.1-12.0); Hematocrit 36.8 % (37.0-47.0); Hemoglobin 12.2 g/dL (12.2-16.2); Lymphocytes # 2.1 K/mm3 (0.7-4.5); Lymphocytes % 36.4 % (10-50); Mean Corpuscular HGB Conc 33.3 g/dL (31.8-35.4); Mean Corpuscular Hemoglobin 30.4 pg (27.0-31.2); Mean Corpuscular Volume 91.3 fl (81-99); Monocytes # 0.3 K/mm3 (0.1-1.0); Monocytes % 4.8 % (1.7-9.3); Neutrophils # 3.2 K/mm3 (1.8-7.8); Neutrophils % 55.4 % (37.0-80.0); Platelet Count 175 K/mm3 (142-424); Red Blood Count 4.03 M/mm3 (4.20-5.40); Red Cell Distribution Width 13.2 % (11.5-17.5); White Blood Count 5.8 K/mm3 (4.8-10.8)
[2022-12-17 10:50] LABS: Alanine Aminotransferase 21 U/L (12-78); Albumin Level 3.7 g/dl (3.5-5.0); Albumin/Globulin Ratio 1.5 (1.1-1.8); Alkaline Phosphatase 63 U/L (38-126); Anion Gap 14.1 mEq/L (5-15); Aspartate Amino Transferase 23 U/L (14-36); Bilirubin,Total 0.2 mg/dl (0.2-1.3); Blood Urea Nitrogen 9 mg/dl (7-17); Calcium 8.9 mg/dl (8.4-10.2); Carbon Dioxide 23 mmol/L (22.0-30.0); Chloride 109 mmol/L (98-107); Chol/HDL Ratio 2.4 (1-3.5); Cholesterol 106 mg/dl (140-200); Estimated Glomerular Filt Rate 58 ml/min (>60); GFR (African American) 70 ML/MIN (>60); Globulin 2.4 g/dL (1.3-3.2); Glucose 79 mg/dl (74-100); HDL Cholesterol 45 mg/dl (40-60); Potassium 4.1 mmoL/L (3.5-5.1); Sodium 142 mmol/L (136-145); Total Protein,Serum 6.1 g/dl (6.3-8.2); Triglycerides 97 mg/dl (30-150); VLDL Cholesterol 19 mg/dL (0-40)
[2022-12-17 16:16] LABS: Hemoglobin A1C 4.8 % (4.0-6.0)
== END | disposition home or self-care (01) ==
PROVIDERS: PCP Nurse Practitioner Family; Visit Provider Nurse Practitioner Family
DX: D50.9 Iron deficiency anemia, unspecified (principal); E11.9 Type 2 diabetes mellitus without complications; Z79.84 Long term (current) use of oral hypoglycemic drugs
CPT/HCPCS: 36415; 80053; 80061; 83036; 85025

== ENCOUNTER → 2023-03-04 13:05 | Outpatient (CLI) | payer OTHER, SELFPAY ==
[2023-03-04 12:51] LABS: Basophils % 0.6 % (0.1-2.0); Eosinophils # 0.1 K/mm3 (0.0-0.4); Eosinophils % 2.5 % (0.1-12.0); Hematocrit 34.8 % (37.0-47.0); Hemoglobin 12.1 g/dL (12.2-16.2); Lymphocytes # 1.5 K/mm3 (0.7-4.5); Lymphocytes % 27.7 % (10-50); Mean Corpuscular HGB Conc 34.8 g/dL (31.8-35.4); Mean Corpuscular Volume 91.9 fl (81-99); Mean Platelet Volume 10.7 fl (7.4-10.4); Monocytes # 0.3 K/mm3 (0.1-1.0); Monocytes % 5.3 % (1.7-9.3); Neutrophils # 3.4 K/mm3 (1.8-7.8); Neutrophils % 63.9 % (37.0-80.0); Platelet Count 166 K/mm3 (142-424); Red Blood Count 3.78 M/mm3 (4.20-5.40); Red Cell Distribution Width 13.4 % (11.5-17.5); White Blood Count 5.2 K/mm3 (4.8-10.8)
[2023-03-04 13:31] LABS: Alanine Aminotransferase 21 U/L (12-78); Albumin Level 4.1 g/dl (3.5-5.0); Albumin/Globulin Ratio 1.7 (1.1-1.8); Alkaline Phosphatase 56 U/L (38-126); Anion Gap 13.4 mEq/L (5-15); Aspartate Amino Transferase 24 U/L (14-36); Bilirubin,Total 0.4 mg/dl (0.2-1.3); Blood Urea Nitrogen 10 mg/dl (7-17); Calcium 9.3 mg/dl (8.4-10.2); Carbon Dioxide 27 mmol/L (22.0-30.0); Chloride 105 mmol/L (98-107); Chol/HDL Ratio 2.4 (1-3.5); Cholesterol 120 mg/dl (140-200); Estimated Glomerular Filt Rate 65 ml/min (>60); GFR (African American) 79 ML/MIN (>60); Globulin 2.4 g/dL (1.3-3.2); Glucose 74 mg/dl (74-100); HDL Cholesterol 50 mg/dl (40-60); Potassium 4.4 mmoL/L (3.5-5.1); Sodium 141 mmol/L (136-145); Total Protein,Serum 6.5 g/dl (6.3-8.2); Triglycerides 72 mg/dl (30-150); VLDL Cholesterol 14 mg/dL (0-40)
[2023-03-04 13:35] LABS: Hemoglobin A1C 4.9 % (4.0-6.0)
[2023-03-04 13:42] LABS: Direct LDL Cholesterol 61.14 mg/dL (100-129)
[2023-03-04 13:50] LABS: 25-OH Vitamin D, Total 41.6 ng/mL (30-100); Free T4 (Free Thyroxine) 1.19 ng/dl (0.78-2.19)
[2023-03-04 14:03] LABS: Thyroid Stimulating Hormone 1.51 uIU/mL (0.465-4.68)
[2023-03-04 14:22] LABS: Vitamin B12 179 pg/mL (239-931)
== END ==
PROVIDERS: PCP Nurse Practitioner Family; Visit Provider Nurse Practitioner Family
DX: R41.89 Other symptoms and signs involving cognitive functions and awareness (principal); E11.9 Type 2 diabetes mellitus without complications; D50.9 Iron deficiency anemia, unspecified; I10 Essential (primary) hypertension; Z13.220 Encounter for screening for lipoid disorders; Z68.32 Body mass index [BMI] 32.0-32.9, adult; Z79.84 Long term (current) use of oral hypoglycemic drugs; Z79.85 Long-term (current) use of injectable non-insulin antidiabetic drugs; Z72.0 Tobacco use
CPT/HCPCS: 80053; 80061; 82306; 82607; 83036; 84439; 84443; 85025

== ENCOUNTER → 2023-04-01 13:28 | Outpatient (CLI) | payer OTHER, SELFPAY ==
[2023-04-01 14:53] LABS: Benzodiazepines Screen,Urine Negative ng/ml (<200)
[2023-04-01 14:54] LABS: Amphetamine/Metha Screen,Urine Negative ng/ml (<1000); Barbiturates Screen,Urine Negative ng/ml (<200)
[2023-04-01 14:55] LABS: Methadone Screen,Urine Negative ng/ml (<300)
[2023-04-01 14:56] LABS: Cannabinoid Screen,Urine Negative ng/ml (<50); Cocaine Screen,Urine Negative ng/ml (<300)
[2023-04-01 14:58] LABS: Opiate Screen,Urine Negative ng/ml (<300); Phencyclidine Screen,Urine Negative ng/ml (<25)
== END ==
PROVIDERS: PCP Nurse Practitioner Family; Visit Provider Nurse Practitioner Family
DX: E11.40 Type 2 diabetes mellitus with diabetic neuropathy, unspecified (principal); Z79.899 Other long term (current) drug therapy
CPT/HCPCS: 80305

== ENCOUNTER 2023-06-14 13:28 | Outpatient (CLI) | payer OTHER, SELFPAY ==
[2023-06-14 13:31] LABS: Microscopic, Urine URINE MICROSCOPIC (MICROSCOPIC)
[2023-06-14 14:17] LABS: Basophils % 0.4 % (0.1-2.0); Eosinophils # 0.1 K/mm3 (0.0-0.4); Eosinophils % 1.6 % (0.1-12.0); Hemoglobin 12.8 g/dL (12.2-16.2); Lymphocytes % 30.6 % (10-50); Mean Corpuscular Hemoglobin 30.4 pg (27.0-31.2); Mean Corpuscular Volume 94.8 fl (81-99); Mean Platelet Volume 10.3 fl (7.4-10.4); Monocytes # 0.4 K/mm3 (0.1-1.0); Monocytes % 6.4 % (1.7-9.3); Neutrophils % 60.9 % (37.0-80.0); Platelet Count 199 K/mm3 (142-424); Red Blood Count 4.22 M/mm3 (4.20-5.40); Red Cell Distribution Width 13.2 % (11.5-17.5); White Blood Count 6.6 K/mm3 (4.8-10.8)
[2023-06-14 14:18] LABS: Appearance,Urine CLEAR (Clear); Bilirubin,Urine Negative (Negative); Blood, Urine Negative (Negative); Color,Urine YELLOW (Yellow); Glucose,Urine (UA) Negative (Negative); Ketones,Urine Negative (Negative); Leukocyte Esterase,Urine Negative (Negative); Nitrate,Urine Negative (Negative); Protein,Urine Negative (Negative); Specific Gravity, Urine >= 1.030 (1.005-1.030); Urobilinogen,Urine 0.2 EU/dl (0.2)
[2023-06-14 14:42] LABS: Calcium Oxalate Crystals,Urine 1+ /lpf
[2023-06-14 14:50] LABS: Hemoglobin A1C 4.8 % (4.0-6.0)
[2023-06-14 15:00] LABS: Alanine Aminotransferase 19 U/L (12-78); Albumin/Globulin Ratio 1.7 (1.1-1.8); Alkaline Phosphatase 57 U/L (38-126); Anion Gap 11.3 mEq/L (5-15); Aspartate Amino Transferase 23 U/L (14-36); Bilirubin,Total 0.3 mg/dl (0.2-1.3); Blood Urea Nitrogen 16 mg/dl (7-17); Calcium 9.1 mg/dl (8.4-10.2); Carbon Dioxide 28 mmol/L (22.0-30.0); Chloride 106 mmol/L (98-107); Chol/HDL Ratio 3.3 (1-3.5); Cholesterol 179 mg/dl (140-200); Estimated Glomerular Filt Rate 65 ml/min (>60); GFR (African American) 79 ML/MIN (>60); Globulin 2.4 g/dL (1.3-3.2); Glucose 68 mg/dl (74-100); HDL Cholesterol 54 mg/dl (40-60); Potassium 4.3 mmoL/L (3.5-5.1); Sodium 141 mmol/L (136-145); Total Protein,Serum 6.4 g/dl (6.3-8.2); Triglycerides 85 mg/dl (30-150); VLDL Cholesterol 17 mg/dL (0-40)
[2023-06-14 15:11] LABS: Direct LDL Cholesterol 90.86 mg/dL (100-129)
[2023-06-14 15:13] LABS: Free T4 (Free Thyroxine) 1.05 ng/dl (0.78-2.19)
[2023-06-14 15:14] LABS: 25-OH Vitamin D, Total 49.3 ng/mL (30-100)
[2023-06-14 15:30] LABS: Thyroid Stimulating Hormone 1.84 uIU/mL (0.465-4.68)
[2023-06-14 15:48] LABS: Vitamin B12 240 pg/mL (239-931)
== END 2023-06-14 23:59 ==
LOC: LAB.DROPOF 13:29
PROVIDERS: PCP Nurse Practitioner Family; Visit Provider Nurse Practitioner Family
DX: I25.10 Atherosclerotic heart disease of native coronary artery without angina pectoris (principal); R53.83 Other fatigue; I10 Essential (primary) hypertension; E11.9 Type 2 diabetes mellitus without complications; F17.210 Nicotine dependence, cigarettes, uncomplicated; E66.9 Obesity, unspecified; Z68.31 Body mass index [BMI] 31.0-31.9, adult; Z79.899 Other long term (current) drug therapy
CPT/HCPCS: 80053; 80061; 81001; 82306; 82607; 83036; 84439; 84443; 85025; 87086

== ENCOUNTER 2023-06-29 07:07 | Outpatient (CLI) | payer OTHER, SELFPAY ==
--- NOTE | 2023-06-29 07:08 | CT_ITS ---
FINAL REPORT TECHNIQUE: Axial images were obtained from the lung apex to the mid abdomen by computed tomography. This study was performed with techniques to keep radiation doses as low as reasonably achievable (ALARA). Individualized dose reduction techniques using automated exposure control or adjustment of mA and/or kV according to the patient's size were employed. CLINICAL HISTORY: lung cancer screening current smoker 1/2 ppd x 30 years COMPARISON: 06/25/2022 FINDINGS: CHEST CT LOW DOSE CTDI vol (mGy): 2.90 DLP (mGy-cm): 96.38 There is no axillary adenopathy. There is no hilar or mediastinal adenopathy. The heart is normal in size. There has been interval placement of a left coronary artery stent. There is no pericardial or pleural effusion. There are several calcified granulomas. There is a 2 mm right upper lobe nodule which is stable, well seen on image 37. Note is made of mild scarring. Limited images of the upper abdomen are unremarkable. IMPRESSION: Stable right upper lobe nodule. Lung RADS category 2. Recommend 12 month follow-up low-dose chest CT. Reviewed, Interpreted and Dictated by Antonio Lion III, MD Transcribed by Cleopatra Mejia Authenticated and . [facility]
== END 2023-06-29 23:59 ==
LOC: RAD 07:08
PROVIDERS: PCP Nurse Practitioner Family; Visit Provider Nurse Practitioner Family
DX: Z87.891 Personal history of nicotine dependence (principal)
CPT/HCPCS: 71271

== ENCOUNTER 2023-10-01 13:22 | Outpatient (CLI) | payer OTHER, SELFPAY ==
--- NOTE | 2023-10-01 13:22 | MM_ITS ---
PROCEDURE INFORMATION: Exam: MG Bilateral Screening 3D Mammography Exam date and time: 10/01/2023 1:07 PM Age: 53 years old Clinical indication: Screening. No family history of breast cancer. TECHNIQUE: Imaging protocol: Bilateral Screening tomosynthesis and 2D mammography including computer-aided detection (CAD) when performed. COMPARISON: 1. MG MM DIG SCREENING MAMM BI W/CAD 09/21/2022 9:30 AM 2. MG MM DIG MAMM BI DX W/CAD 09/19/2021 1:59 PM 3. MG MM DIG MAMM DX UNILAT LT CAD 04/04/2021 2:02 PM 4. MG MM DIG MAMM DX UNILAT LT CAD 09/19/2020 10:50 AM FINDINGS: MAMMOGRAPHY: Breast composition: There are scattered areas of fibroglandular density. Mass: No suspicious mass. Architectural distortion: None. Calcifications: No suspicious calcifications. Asymmetric density: None. Skin thickening: None. Axillary adenopathy: None. IMPRESSION: No mammographic evidence of malignancy. Annual screening is recommended unless otherwise clinically indicated. ASSESSMENT: BI-RADS Category 1: Negative
== END 2023-10-01 23:59 | disposition home or self-care (01) ==
LOC: RAD 13:22
PROVIDERS: PCP Nurse Practitioner Family; Visit Provider Nurse Practitioner Family
DX: Z12.31 Encounter for screening mammogram for malignant neoplasm of breast (principal)
CPT/HCPCS: 77063; 77067

== ENCOUNTER 2023-12-13 12:59 | Outpatient (CLI) | payer OTHER, SELFPAY ==
[2023-12-13 12:55] LABS: Microscopic, Urine URINE MICROSCOPIC (MICROSCOPIC)
[2023-12-13 13:06] LABS: Appearance,Urine CLEAR (Clear); Bilirubin,Urine Negative (Negative); Blood, Urine Negative (Negative); Color,Urine YELLOW (Yellow); Glucose,Urine (UA) Negative (Negative); Ketones,Urine Negative (Negative); Leukocyte Esterase,Urine Negative (Negative); Nitrate,Urine Negative (Negative); Protein,Urine Negative (Negative); Specific Gravity, Urine 1.025 (1.005-1.030); Urobilinogen,Urine 0.2 EU/dl (0.2)
[2023-12-13 13:32] LABS: Bacteria,Urine Trace /lpf; WBC,Urine Occasional #/hpf (0-3)
[2023-12-13 13:37] LABS: Anion Gap 8.7 mEq/L (5-15); Blood Urea Nitrogen 9 mg/dl (7-17); Calcium 9.1 mg/dl (8.4-10.2); Carbon Dioxide 28 mmol/L (22.0-30.0); Chloride 108 mmol/L (98-107); Chol/HDL Ratio 2.1 (1-3.5); Cholesterol 134 mg/dl (140-200); Estimated Glomerular Filt Rate 65 ml/min (>60); GFR (African American) 79 ML/MIN (>60); Glucose 82 mg/dl (74-100); HDL Cholesterol 63 mg/dl (40-60); Potassium 4.7 mmoL/L (3.5-5.1); Sodium 140 mmol/L (136-145); Triglycerides 64 mg/dl (30-150); VLDL Cholesterol 13 mg/dL (0-40)
[2023-12-13 13:47] LABS: Direct LDL Cholesterol 47.72 mg/dL (100-129)
[2023-12-13 13:52] LABS: Hemoglobin A1C 4.7 % (4.0-6.0)
[2023-12-13 14:28] LABS: Vitamin B12 220 pg/mL (239-931)
== END 2023-12-13 23:59 | disposition home or self-care (01) ==
LOC: LAB.DROPOF 13:00
PROVIDERS: PCP Nurse Practitioner Family; Visit Provider Nurse Practitioner Family
DX: I10 Essential (primary) hypertension; E11.9 Type 2 diabetes mellitus without complications; Z79.84 Long term (current) use of oral hypoglycemic drugs; Z79.85 Long-term (current) use of injectable non-insulin antidiabetic drugs; E53.8 Deficiency of other specified B group vitamins
CPT/HCPCS: 80048; 80061; 81001; 82607; 83036; 87086

== ENCOUNTER 2024-02-04 13:28 | Outpatient (CLI) | payer OTHER, SELFPAY ==
[2024-02-04 14:07] LABS: Basophils % 0.7 % (0.1-2.0); Eosinophils # 0.1 K/mm3 (0.0-0.4); Eosinophils % 1.7 % (0.1-12.0); Hematocrit 33.8 % (37.0-47.0); Hemoglobin 11.7 g/dL (12.2-16.2); Lymphocytes # 2.3 K/mm3 (0.7-4.5); Lymphocytes % 38.5 % (10-50); Mean Corpuscular HGB Conc 34.5 g/dL (31.8-35.4); Mean Corpuscular Hemoglobin 31.1 pg (27.0-31.2); Mean Corpuscular Volume 90.1 fl (81-99); Mean Platelet Volume 9.2 fl (7.4-10.4); Monocytes # 0.4 K/mm3 (0.1-1.0); Monocytes % 5.7 % (1.7-9.3); Neutrophils # 3.2 K/mm3 (1.8-7.8); Neutrophils % 53.3 % (37.0-80.0); Platelet Count 174 K/mm3 (142-424); Red Blood Count 3.75 M/mm3 (4.20-5.40); Red Cell Distribution Width 13.4 % (11.5-17.5); White Blood Count 6.1 K/mm3 (4.8-10.8)
[2024-02-04 14:26] LABS: Alanine Aminotransferase 21 U/L (12-78); Alkaline Phosphatase 43 U/L (38-126); Anion Gap 6.8 mEq/L (5-15); Aspartate Amino Transferase 24 U/L (14-36); Bilirubin,Direct 0.3 mg/dl (0.0-0.4); Bilirubin,Indirect 0.2 mg/dL (0.0-0.9); Bilirubin,Total 0.5 mg/dl (0.2-1.3); Bilirubin,Unconjugated 0.2 mg/dL (0.0-1.1); Blood Urea Nitrogen 11 mg/dl (7-17); Calcium 9.3 mg/dl (8.4-10.2); Carbon Dioxide 31 mmol/L (22.0-30.0); Chloride 107 mmol/L (98-107); Chol/HDL Ratio 1.8 (1-3.5); Cholesterol 127 mg/dl (140-200); Estimated Glomerular Filt Rate 57 ml/min (>60); GFR (African American) 69 ML/MIN (>60); Glucose 107 mg/dl (74-100); HDL Cholesterol 69 mg/dl (40-60); Magnesium 1.9 mg/dl (1.6-2.3); Potassium 3.8 mmoL/L (3.5-5.1); Sodium 141 mmol/L (136-145); Total Protein,Serum 6.1 g/dl (6.3-8.2); Triglycerides 88 mg/dl (30-150); VLDL Cholesterol 18 mg/dL (0-40)
[2024-02-04 14:37] LABS: Direct LDL Cholesterol 45.03 mg/dL (100-129)
[2024-02-04 14:44] LABS: Free T4 (Free Thyroxine) 1.03 ng/dl (0.78-2.19)
[2024-02-04 15:11] LABS: Iron 69 ug/dL (37-170)
[2024-02-04 15:20] LABS: Total Iron Binding Capacity 327 ug/dL (265-497)
[2024-02-04 15:40] LABS: Folate > 20.00 ng/mL; Vitamin B12 > 1000 pg/mL (239-931)
[2024-02-04 15:43] LABS: Thyroid Stimulating Hormone 1.78 uIU/mL (0.465-4.68)
[2024-02-04 15:47] LABS: Ferritin 24.1 ng/ml (11.1-264)
== END 2024-02-04 23:59 | disposition home or self-care (01) ==
LOC: LAB 13:28
PROVIDERS: PCP Nurse Practitioner Family; Visit Provider Physician Assistant
DX: E53.8 Deficiency of other specified B group vitamins (principal); D50.9 Iron deficiency anemia, unspecified; Z95.5 Presence of coronary angioplasty implant and graft; I25.10 Atherosclerotic heart disease of native coronary artery without angina pectoris; I65.29 Occlusion and stenosis of unspecified carotid artery; G47.33 Obstructive sleep apnea (adult) (pediatric); Z99.89 Dependence on other enabling machines and devices; I10 Essential (primary) hypertension; E13.9 Other specified diabetes mellitus without complications; Z72.0 Tobacco use
CPT/HCPCS: 36415; 80048; 80061; 80076; 82607; 82728; 82746; 83540; 83550; 83735; 84439; 84443; 85025

== ENCOUNTER 2024-06-12 08:54 | Outpatient (CLI) | payer OTHER, SELFPAY ==
[2024-06-12 13:40] LABS: Microscopic, Urine URINE MICROSCOPIC (MICROSCOPIC)
[2024-06-12 13:57] LABS: Basophils % 0.5 % (0.1-2.0); Eosinophils # 0.1 K/mm3 (0.0-0.4); Eosinophils % 1.7 % (0.1-12.0); Hematocrit 37.7 % (37.0-47.0); Hemoglobin 12.4 g/dL (12.2-16.2); Lymphocytes # 1.5 K/mm3 (0.7-4.5); Lymphocytes % 23.1 % (10-50); Mean Corpuscular HGB Conc 32.9 g/dL (31.8-35.4); Mean Corpuscular Volume 91.1 fl (81-99); Mean Platelet Volume 12.3 fl (7.4-10.4); Monocytes # 0.4 K/mm3 (0.1-1.0); Neutrophils # 4.5 K/mm3 (1.8-7.8); Neutrophils % 68.4 % (37.0-80.0); Platelet Count 182 K/mm3 (142-424); Red Blood Count 4.14 M/mm3 (4.20-5.40); Red Cell Distribution Width 12.6 % (11.5-17.5); White Blood Count 6.5 K/mm3 (4.8-10.8)
[2024-06-12 14:31] LABS: Albumin Level 4.4 g/dl (3.5-5.0); Chloride 104 mmol/L (98-107); Potassium 4.4 mmoL/L (3.5-5.1); Sodium 141 mmol/L (136-145)
[2024-06-12 14:33] LABS: Blood Urea Nitrogen 10 mg/dl (7-17); Estimated Glomerular Filt Rate 57 ml/min (>60); GFR (African American) 69 ML/MIN (>60)
[2024-06-12 14:34] LABS: HDL Cholesterol 71 mg/dl (40-60)
[2024-06-12 14:45] LABS: Direct LDL Cholesterol 47.23 mg/dL (100-129)
[2024-06-12 14:46] LABS: Appearance,Urine CLEAR (Clear); Bilirubin,Urine Negative (Negative); Blood, Urine Negative (Negative); Color,Urine YELLOW (Yellow); Glucose,Urine (UA) Negative (Negative); Ketones,Urine Negative (Negative); Leukocyte Esterase,Urine Negative (Negative); Nitrate,Urine Negative (Negative); Protein,Urine Negative (Negative); Specific Gravity, Urine 1.015 (1.005-1.030); Urobilinogen,Urine 0.2 EU/dl (0.2)
[2024-06-12 14:51] LABS: Free T4 (Free Thyroxine) 1.18 ng/dl (0.78-2.19)
[2024-06-12 15:04] LABS: Thyroid Stimulating Hormone 0.93 uIU/mL (0.465-4.68)
[2024-06-12 15:10] LABS: Total Protein,Urine Random < 5.0 mg/dL (0.0-12.0)
[2024-06-12 15:14] LABS: Alanine Aminotransferase 22 U/L (12-78); Albumin/Globulin Ratio 2.1 (1.1-1.8); Alkaline Phosphatase 57 U/L (38-126); Anion Gap 11.4 mEq/L (5-15); Aspartate Amino Transferase 24 U/L (14-36); Bacteria,Urine Trace /lpf; Bilirubin,Total 0.3 mg/dl (0.2-1.3); Calcium 9.3 mg/dl (8.4-10.2); Carbon Dioxide 30 mmol/L (22.0-30.0); Cholesterol 140 mg/dl (140-200); Globulin 2.1 g/dL (1.3-3.2); Glucose 69 mg/dl (74-100); Total Protein,Serum 6.5 g/dl (6.3-8.2); Triglycerides 83 mg/dl (30-150); VLDL Cholesterol 17 mg/dL (0-40)
[2024-06-12 15:29] LABS: Creatinine,Urine Random 104 mg/dL (Not Estab.)
[2024-06-12 15:33] LABS: 25-OH Vitamin D, Total 59.5 ng/mL (30-100); Microalbumin < 6.000 mg/L (0-16.7)
[2024-06-12 16:08] LABS: Vitamin B12 > 1000 pg/mL (239-931)
[2024-06-12 16:50] LABS: Hemoglobin A1C 4.7 % (4.0-6.0)
== END 2024-06-12 23:59 | disposition home or self-care (01) ==
LOC: LAB.DROPOF 06-13 17:19
PROVIDERS: PCP Nurse Practitioner Family; Visit Provider Nurse Practitioner Family
DX: E11.40 Type 2 diabetes mellitus with diabetic neuropathy, unspecified (principal)
CPT/HCPCS: 80053; 80061; 81001; 82043; 82306; 82570; 82607; 83036; 84156; 84439; 84443; 85025; 87086

== ENCOUNTER 2024-06-30 07:29 | Outpatient (CLI) | payer OTHER, SELFPAY ==
--- NOTE | 2024-06-30 07:30 | CT_ITS ---
FINAL REPORT CLINICAL HISTORY: lung cancer screening current smoker 1ppd x32 years COMPARISON: 06/29/2023 FINDINGS: CTDI vol (mGy): 2.90 DLP: 89.[address] images of the chest were obtained using the low-dose protocol for screening. There is no evidence of mediastinal or hilar mass or adenopathy. No axillary mass or adenopathy is identified. There is no pleural or pericardial effusion. On the lung window images, there is a 3 mm right upper lobe nodule on image 35 of series 3 which is stable from prior exam. 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 There is severe coronary artery plaque disease. IMPRESSION: Lung RADS category 2. Recommend 12 month followup low-dose CT for further evaluation. Reviewed, Interpreted and Dictated by Genny Hammond MD Transcribed by Erin Valdez Authenticated and . [facility]
== END 2024-06-30 23:59 | disposition home or self-care (01) ==
LOC: RAD 07:30
PROVIDERS: PCP Nurse Practitioner Family; Visit Provider Nurse Practitioner Family
DX: R91.1 Solitary pulmonary nodule (principal)
CPT/HCPCS: 71271

== ENCOUNTER 2024-10-06 16:46 | Outpatient (CLI) | payer OTHER, SELFPAY ==
--- OUTSIDE RECORDS SUMMARY | 2024-10-06 16:48 | XMS_ITS | Clinical Summary ---
Author Organization Healthcare Address [address] [place] [address] Care Team Providers Care Mail List Librarian Name Role Phone Lia Ortiz APRN Primary Care Provider [phone] Social History Tobacco Use Types Packs/Day Years Used Date Smoking Tobacco: Never Assessed Comments Unknown Sex and Gender Information Value Date Recorded Sex Assigned at Not on file Legal Sex Female 7:03 PM EDT Gender Identity Not on file Sexual Orientation Not on file Last Filed Vital Signs Vital Sign Reading Time Taken Comments Blood Pressure 118/80 10/06/2022 11:59 AM EDT Pulse 70 10/06/2022 11:59 AM EDT Temperature - - Respiratory Rate - - Oxygen Saturation - - Inhaled Oxygen Concentration - - Weight 80.7 kg (178 lb) 10/06/2022 11:59 AM EDT Height 149.9 cm (4' 11 ) 10/06/2022 11:59 AM EDT Body Mass Index 35.95 10/06/2022 11:59 AM EDT Plan of Treatment Health Maintenance Due Date Last Done Comments [facility]-Depression Screening 1968 [facility]-Infant/Child/Adol SDOH Screenings 1970 [facility]- SDOH Screenings 01/22/1986 [facility]-Adult SDOH Screenings 01/22/1986 [facility]-Pap Smear 01/22/1989 [facility]-Cervical Cancer Screening 01/22/1998 [facility]-HPV/Cotest 01/22/1998 CT Colonography 01/22/2013 Colonoscopy 01/22/2013 FIT-DNA 01/22/2013 FIT 01/22/2013 FOBT 01/22/2013 Sigmoidoscopy 01/22/2013 [facility]-Colorectal Cancer Screening 01/22/2013 [facility]-Hepatitis B Vaccines (2 of 3 - 19+ 3-dose series) 01/02/2015 12/05/2014 [facility]-Pneumococcal Vaccine: 50 + Years (1 of 1 - PCV) 01/22/2018 [facility]-Zoster Vaccines (1 of 2) 01/22/2018 [id number]-99 Vaccine (4 - season) 2023 02/21/2021, 05/24/2020, 04/23/2020 [facility]-DTaP,Tdap,and Td Vaccine s (2 - Td or Tdap) 12/05/2024 12/05/2014 [facility]-Influenza Vaccine (Seas[place] n Ended) 2024 01/14/2016, 12/05/2014 HPV Vaccines Aged Out No longer eligi ble based on patient's age to complete this topic [facility]-HIB Vaccines Aged Out No longer e ligible based on patient's age to complete this topic [facility]-Hepatitis A Vaccines Aged Out No longer eligible based on patient's age to complete this topic [facility]-IPV Vaccines Aged Out No longer e ligible based on patient's age to complete this topic [facility]-Rotavirus Vaccines Aged Out No lo nger eligible based on patient's age to complete this topic Insurance Care Teams Mail List Librarian Relationship Specialty Start Date End Date Lia Ortiz APRN [address] [place] [id number] PCP - General 08/30/20
--- NOTE | 2024-10-06 17:00 | MM_ITS ---
PROCEDURE INFORMATION: Exam: MG Bilateral Screening 3D Mammography Exam date and time: 10/06/2024 4:49 PM Age: 54 years old Clinical indication: Screening examination TECHNIQUE: Imaging protocol: Bilateral Screening tomosynthesis and 2D mammography including computer-aided detection (CAD) when performed. COMPARISON: 1. MG MM DIG SCREENING MAMM BI W/CAD 10/01/2023 1:07 PM 2. MG MM DIG SCREENING MAMM BI W/CAD 09/21/2022 9:30 AM FINDINGS: MAMMOGRAPHY: Breast composition: There are scattered areas of fibroglandular density. Mass: None. Architectural distortion: None. Calcifications: No suspicious calcifications. Asymmetric density: None. Skin thickening: None. Axillary adenopathy: None. IMPRESSION: No mammographic evidence of malignancy. Annual screening is recommended unless otherwise clinically indicated. ASSESSMENT: BI-RADS Category 1: Negative.
== END 2024-10-06 23:59 | disposition home or self-care (01) ==
LOC: RAD 16:46
PROVIDERS: PCP Nurse Practitioner Family; Referring Provider Nurse Practitioner Family; Visit Provider Nurse Practitioner Family
DX: Z12.31 Encounter for screening mammogram for malignant neoplasm of breast (principal); R92.323 Mammographic fibroglandular density, bilateral breasts
CPT/HCPCS: 77063; 77067

== ENCOUNTER 2025-03-28 09:45 | Outpatient (CLI) | payer OTHER, SELFPAY | END 2025-03-28 23:59 | LOC: LAB.DROPOF 03-30 11:26 | PROVIDERS: PCP Nurse Practitioner Family; Visit Provider Nurse Practitioner Family | DX: J02.9 Acute pharyngitis, unspecified (principal) | CPT/HCPCS: 87070 ==